=== PATIENT | male | born 1950 | race African-American/Black ===

== ENCOUNTER → 2017-01-19 | Outpatient (CLI) | payer MEDICARE, BC ==
[~2017-01-19] MED LIST: AMIO200T2 PO; HYDR-762 PO; HYDR200T39 PO; LEVO25TA53 PO; TAMS0.4C2 PO; WARF5TAB72 PO
--- NOTE | 2017-01-20 08:56 | RADRPT ---
PROCEDURE: LEFT KNEE X-RAY CLINICAL INDICATION: PAIN TECHNIQUE: AP, lateral, and oblique views of the knee were obtained. COMPARISON: Plain radiographs of the knees from 08/21/2014 FINDINGS: No acute fracture or dislocation is seen. There is normal mineralization. An osteochondral defect involving the lateral compartment is again noted measuring up to 15 mm in wi dth and 7 mm in height. It appears that increased in size since the prior radiographs from 2014. S ubchondral sclerosis and joint space narrowing involving the lateral compartment are again noted. There is no joint effusion. There is no significant soft tissue swelling. IMPRESSION: Osteochondral defect and degenerative changes involving primarily the lateral compartment are again noted which have increased since the prior radiographs from 2014. RPTAT: EE Physician Abiel Date Time Electronically viewed and signed by Physician Abiel on 01/20/2017 08:55 RA/
== END | disposition home or self-care (01) ==
LOC: HKI 13:53
DX: M25.562 Pain in left knee (principal); M17.12 Unilateral primary osteoarthritis, left knee; Z96.651 Presence of right artificial knee joint
CPT/HCPCS: 20610; 73562; G0463

== ENCOUNTER 2017-01-22 22:32 | Inpatient (IN) | payer MEDICARE, BC ==
[~2017-01-22] VITALS: Ht 172.7 cm; Wt 66.2 kg
[2017-01-23 00:50] VITALS: TEMP 97.4
[2017-01-23] MEDS ORDERED: HYDROmorphONE 1 MG/ML SYG IV STA ×4 (02:28→09:58)
[2017-01-23] MEDS ORDERED: SOD CHLORIDE 0.9% 1,000 ML IV ONE ×2 (02:30→04:30)
--- NOTE | 2017-01-23 02:32 | ERD ---
ER Documentation Chief Complaint Date/Time DATE: 01/23/17 TIME: 02:30 Chief Complaint low back pain today, limping gait, hx of sickle cell HPI Patient is a 66-year-old male with sickle cell disease who presents with gradual onset, constant, moderate bilateral lumbar back pain since 7 PM. He denies dysuria, hematuria, abdominal pain, fever, vomiting. He states that he has had one prior episode of similar pain in the setting of sickle crisis 3 years ago. He denies leg weakness or numbness. He denies incontinence. He denies trauma or heavy lifting. He denies dark stools. ROS All systems reviewed and are negative except as per history of present illness. Medications Home Meds Reported Medications Tamsulosin Hcl* (Tamsulosin Hcl*) 0.4 Mg Cap.er.24h, 0.4 MG PO DAILY, CAP 10/10/14 Warfarin Sodium* (Coumadin*) 5 Mg Tablet, 5 MG PO DAILY, TAB 10/10/14 Amiodarone Hcl* (Amiodarone Hcl*) 200 Mg Tablet, 200 MG PO DAILY 12/01/12 Discontinued Reported Medications Levothyroxine Sodium* (Levothyroxine Sodium*) 25 Mcg Tablet, PO AC BREAKFAST, TAB 10/10/14 Hydroxychloroquine Sulfate* (Hydroxychloroquine Sulfate*) 200 Mg Tablet, 200 MG PO BID, TAB 10/10/14 Discontinued Scripts Hydrocodone Bit-Acetaminophen* ([place]*) 10-325 Mg Tablet, 1 TAB PO Q6 Y for PAIN , #5 TAB Prov:JONAS GALLAGHER MD 02/10/15 Allergies Allergies: Coded Allergies: morphine (Unverified Allergy, Unknown, "SLOWS DOWN MY BREATHING", 01/23/17) PMhx/Soc Past medical history: Sickle cell disease, pulmonary embolism, cardiac arrhythmia Past surgical history: Right knee replacement Social history: Denies tobacco, alcohol or illicit drugs History of Surgery: Yes (right knee replacement) Anesthesia Reaction: No Hx Neurological Disorder: No Hx Respiratory Disorders: No Hx Cardiac Disorders: No Hx Psychiatric Problems: No Hx Miscellaneous Medical Probl: Yes (sickel cell) Hx Alcohol Use: No Hx Substance Use: No Hx Tobacco Use: No Smoking Status: Never smoker FmHx Family History: No coronary disease, No diabetes Physical Exam Vitals Vital Signs Date Time Temp Pulse Resp B/P Pulse Ox O2 Delivery O2 Flow Rate FiO2 01/23/17 06:32 73 20 175/74 100 Room Air 01/23/17 05:29 80 22 184/78 100 Nasal Cannula 2.0 01/23/17 03:43 68 20 168/87 98 Room Air 01/23/17 00:50 97.4 58 17 151/67 97 Room Air 01/22/17 23:07 97.1 71 17 192/75 97 Physical Exam Const: Alert, no acute distress Head: Atraumatic Eyes: Normal Conjunctiva, mild pallor, mild icterus ENT: Normal External Ears, Nose and Mouth. Mucous membranes moist Neck: Full range of motion..~ No meningismus. Resp: Clear to auscultation bilaterally, no wheezes, no rales Cardio: Regular rate and rhythm, no murmurs Abd: Soft, non tender, non distended. Normal bowel sounds Skin: No petechiae or rashes Back: No midline or CVA tenderness. Bilateral lumbar paraspinal tenderness with muscle spasm Ext: No cyanosis, or edema Neur: Awake and alert, cranial nerves II through XII intact bilaterally, strength and sensation full in 4 extremities. Psych: Normal Mood and Affect Result Diagram: 01/23/17 0230 01/23/17 0230 Results 24 hrs Laboratory Tests Test 01/23/17 02:30 01/23/17 03:10 White Blood Count 15.310^3/ul Red Blood Count 2.4310^6/ul Hemoglobin 6.7g/dl Hematocrit 20.0% Mean Corpuscular Volume 82.3fl Mean Corpuscular Hemoglobin 27.6pg Mean Corpuscular Hemoglobin Concent 33.5g/dl Red Cell Distribution Width 24.1% Platelet Count 23104^3/UL Mean Platelet Volume 11.2fl Neutrophils % 68.2% Lymphocytes % 10.2% Monocytes % 16.6% Eosinophils % 0.0% Basophils % 0.1% Nucleated Red Blood Cells % 1.8/100WBC Neutrophils # (Manual) 1010^3/ul Lymphocytes # 1.610^3/ul Monocytes # 2.510^3/ul Eosinophils # 0.010^3/ul Basophils # 0.010^3/ul Nucleated Red Blood Cells # 0.310^3/ul Prothrombin Time 27.1Sec Prothrombin Time Ratio 2.1 INR International Normalized Ratio 2.48 Sodium Level 136mmol/L Potassium Level 5.3mmol/L Chloride Level 104mmol/L Carbon Dioxide Level 22mmol/L Anion Gap 15 Blood Urea Nitrogen 24mg/dl Creatinine 0.97mg/dl Glucose Level 104mg/dl Calcium Level 8.3mg/dl Total Bilirubin 3.5mg/dl Direct Bilirubin 0.10mg/dl Indirect Bilirubin 3.4mg/dl Aspartate Amino Transf (AST/SGOT) 47IU/L Alanine Aminotransferase (ALT/SGPT) 45IU/L Alkaline Phosphatase 136IU/L Total Protein 8.2g/dl Albumin 4.2g/dl Globulin 4.00g/dl Albumin/Globulin Ratio 1.05 Urine Color YELLOW Urine Clarity CLOUDY Urine pH 5.0 Urine Specific [place] 1.011 Urine Ketones NEGATIVEmg/dL Urine Nitrite NEGATIVEmg/dL Urine Bilirubin NEGATIVEmg/dL Urine Urobilinogen 2+mg/dL Urine Leukocyte Esterase NEGATIVELeu/ul Urine Microscopic RBC 2/HPF Urine Microscopic WBC 1/HPF Urine Hemoglobin NEGATIVEmg/dL Urine Glucose NEGATIVEmg/dL Urine Total Protein NEGATIVEmg/dl Current Medications Medications (Trade) Dose Ordered Sig/Brett Route PRN Reason Start Time Stop Time Status Last Admin Dose Admin Hydromorphone HCl 1 mg 1 mg ONCE STAT IV 01/23/17 02:28 01/23/17 02:31 DC 01/23/17 02:41 Sodium Chloride (NS) 1,000 ml @ 1,000 mls/hr Q1H ONCE IV 01/23/17 02:30 01/23/17 03:29 DC 01/23/17 02:36 Hydromorphone HCl (Dilaudid) 1 mg ONCE STAT IV 01/23/17 03:03 01/23/17 03:04 DC 01/23/17 03:07 Hydromorphone HCl 1 mg 1 mg ONCE STAT IV 01/23/17 04:05 01/23/17 04:06 DC 01/23/17 04:10 Sodium Chloride (NS) 1,000 ml @ 1,000 mls/hr Q1H ONCE IV 01/23/17 04:30 01/23/17 05:29 DC 01/23/17 04:21 Ketorolac Tromethamine (Toradol) 15 mg ONCE STAT IV 01/23/17 04:25 01/23/17 04:27 DC 01/23/17 04:34 Cyclobenzaprine HCl 10 mg 10 mg ONCE ONCE PO 01/23/17 04:30 01/23/17 04:31 DC 01/23/17 04:35 Sodium Chloride (NS) 250 ml @ 0 mls/hr Q0M ONCE IV 01/23/17 04:25 01/23/17 04:27 DC Procedures/MDM MDM: Patient is a 66-year-old male who presents with bilateral paraspinal lumbar pain for 2 days. He has muscle tenderness on exam. He has no fever or neurologic symptoms. She reports a history of similar pain during a sickle pain crisis several years ago. He was given IV narcotics, muscle relaxants and Toradol, as well as IV fluids and oxygen, and had mild improvement. He was found to have anemia with hemoglobin less than 7. I offered him transfusion, which I believe may help his symptoms as well as prevent him from developing symptomatic anemia, and the patient agreed to transfusion. He will be given 1 unit of packed red blood cells and discharged home with a prescription for analgesics. There is no evidence of UTI. He was advised on return precautions. He was well-appearing. I consulted [facility] and could not find any entries for him. 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
[2017-01-23 03:39] LABS: ABNORMAL IP MESSAGE 1; BASOPHILS % 0.1 % (0.0-2.0); LYMPHOCYTES # 1.6 10^3/ul (0.8-2.9); LYMPHOCYTES % 10.2 % (15.0-51.0); MEAN CORPUSCULAR HEMOGLOBIN 27.6 pg (29.0-33.0); MEAN CORPUSCULAR HGB CONC 33.5 g/dl (32.0-37.0); MEAN CORPUSCULAR VOLUME 82.3 fl (82.0-101.0); MEAN PLATELET VOLUME 11.2 fl (7.4-10.4); MONOCYTE # 2.5 10^3/ul (0.3-0.9); MONOCYTES % 16.6 % (0.0-11.0); NEUTROPHILS % 68.2 % (39.0-77.0); NUCLEATED RED BLOOD CELLS # 0.3 10^3/ul (0.0-0.0); NUCLEATED RED BLOOD CELLS% 1.8 /100WBC (0.0-0.0); PLATELET COUNT 222 10^3/UL (140-415); POSITIVE DIFF @See below; RED BLOOD COUNT 2.43 10^6/ul (4.70-6.10); RED CELL DISTRIBUTION WIDTH 24.1 % (11.5-14.5); WHITE BLOOD COUNT 15.3 10^3/ul (4.8-10.8)
[2017-01-23 03:56] LABS: INR 2.48; PROTIME 27.1 Sec (12.2-14.2); PT RATIO 2.1
[2017-01-23 03:59] LABS: ALBUMIN 4.2 g/dl (3.3-4.9); ALBUMIN/GLOBULIN RATIO 1.05; BILIRUBIN,DIRECT 0.1 mg/dl (0.00-0.20); BILIRUBIN,INDIRECT 3.4 mg/dl (0-1.1); BILIRUBIN,TOTAL 3.5 mg/dl (0.2-1.3); CALCIUM 8.3 mg/dl (8.4-10.2); CREATININE 0.97 mg/dl (0.61-1.24); POTASSIUM 5.3 mmol/L (3.5-5.1); TOTAL PROTEIN 8.2 g/dl (6.1-8.1)
[2017-01-23 04:12] LABS: HEMOGLOBIN 6.7 g/dl (14.0-18.0)
[2017-01-23 04:25] LABS: ADD UMIC YES; UR ASCORBIC ACID 40 mg/dL (NEGATIVE); UR BILIRUBIN (Dip) NEGATIVE (NEGATIVE); UR BLOOD (Dip) NEGATIVE (NEGATIVE); UR CLARITY CLOUDY (CLEAR); UR COLOR YELLOW (YELLOW); UR GLUCOSE (Dip) NEGATIVE (NEGATIVE); UR KETONES (Dip) NEGATIVE (NEGATIVE); UR LEUKOCYTE ESTERASE (Dip) NEGATIVE Leu/ul (NEGATIVE); UR NITRITE (Dip) NEGATIVE (NEGATIVE); UR RBC 2 /HPF (0-5); UR SPECIFIC GRAVITY (Dip) 1.011 (1.003-1.030); UR TOTAL PROTEIN (Dip) NEGATIVE (NEGATIVE); UR UROBILINOGEN (Dip) 2+ mg/dL (NEGATIVE)
[2017-01-23] MEDS ORDERED: KETOROLAC 15 MG INJ IV STA (04:25)
[2017-01-23] MEDS ORDERED: SOD CHLORIDE 0.9% 250 ML IV ONE (04:25)
[2017-01-23] MEDS ORDERED: CYCLOBENZAPRINE 10 MG TAB PO ONE (04:30)
[2017-01-23] MEDS ORDERED: CYCL-319 PO (06:59)
[2017-01-23] MEDS ORDERED: OXYC-279 PO (06:59)
[2017-01-23] MEDS ORDERED: OXYCODONE/ACETAMINOPHEN (10/325) TAB PO ONE (08:00)
[2017-01-23 08:09] LABS: ANISOCYTOSIS 2+ (0-0); ERYTHROBLAST% (NRBC) (M) 4 % (0-0); GIANT THROMBO% (M) 14 % (0-0); HYPOCHROMASIA 2+ (0-0); MICROCYTOSIS 1+ (0-0); MONOCYTES % (M) 17 % (0-11); PLATELET ESTIMATE NORMAL; POIKILOCYTOSIS 2+ (0-0); POLYCHROMASIA 3+ (0-0); SICKLE CELL 1+ (0-0); STOMATOCYTES 1+ (0-0); TARGET CELLS 1+ (0-0)
[2017-01-23 08:15] LABS: RETICULOCYTE COUNT % 6.5 % (0.5-1.5)
[2017-01-23] MEDS ORDERED: CEFTRIAXONE 1 GM/50 ML (PMX) 50 ML IVPB ONE (10:30)
[2017-01-23] MEDS ORDERED: ACETAMINOPHEN 325 MG TAB PO PRN (11:00)
[2017-01-23] MEDS ORDERED: ONDANSETRON 4 MG INJ IV PRN (11:00)
[2017-01-23] MEDS ORDERED: NACL 0.9% 3 ML SYG IV SCH (12:30)
[2017-01-23] MEDS ORDERED: DOCUSATE SODIUM 100 MG CAP PO PRN (12:30)
[2017-01-23] MEDS ORDERED: ONDANSETRON 4 MG TAB PO PRN (12:30)
[2017-01-23] MEDS ORDERED: OXYCODONE/ACETAMINOPHEN (5/325) TAB PO PRN (12:30)
[2017-01-23] MEDS ORDERED: CYCLOBENZAPRINE 10 MG TAB PO PRN (12:30)
--- NOTE | 2017-01-23 12:47 | HP ---
Date/Time of Note Date/Time of Note DATE: 01/23/17 TIME: 12:38 Assessment/Plan VTE Prophylaxis VTE Prophylaxis Intervention: heparin Assessment/Plan Problems: (1) Sickle cell anemia with pain Status: Acute Comment: This gentleman generally does quite well but has gone into a pain crisis with severe anemia high reticulocyte count. To be thorough I will check a stool for occult blood and follow him along. He will be transfused to help bring him up and will be on oxygen. Actually as of now his pain control is getting better but again we need to bring his counts up. (2) Rheumatoid arthritis Status: Chronic Comment: Noted. He had previously been treated with Plaquenil but is off of treatment. His regular ground operations supervisor is Dr. Sai Joe Qualifiers: Rheumatoid arthritis location: hand Rheumatoid factor presence: with rheumatoid factor Laterality: bilateral Qualified Code: M05.741 - Rheumatoid arthritis involving both hands with positive rheumatoid factor (3) BPH (benign prostatic hypertrophy) with urinary retention Status: Chronic Comment: Continue tamsulosin therapeutic (4) Osteoarthritis Status: Chronic Comment: As per the management from Dr. Bardales Qualifiers: Osteoarthritis location: knee Osteoarthritis type: primary Laterality: left Qualified Code: M17.12 - Primary osteoarthritis of left knee (5) Paroxysmal atrial fibrillation Status: Chronic Comment: He is presently in sinus rhythm while on anticoagulation and amiodarone. His medications will be continued HPI/ROS Admit Date/Time Admit Date/Time January 23, 2017 Hx of Present Illness Generally healthy 66-year-old single -[place] gentleman. 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 His last was roughly 3 years ago which was treated in the emergency room and then treated as an outpatient without admission. He has recently generally been healthy without any known fevers chills sweats has a negative urologic GI and respiratory review of systems. On 22 January he developed low back pain which then progressed to bilateral shoulder pain typical of his prior pain episodes. He presented to the emergency room with the hope of being treated as an outpatient. He was treated with analgesia but unfortunately his pain did not remit as much as at prior episodes. He denies any melena or bright red blood per rectum. ROS Constitutional: no complaints (Denies fevers chills or sweats) Eyes: no complaints (Denies ophthalmic complaints) ENT: no complaints (No sinus symptoms) Respiratory: no complaints (Fully negative) Cardiovascular: no complaints Gastrointestinal: no complaints (Denies nausea vomiting diarrhea constipation) Genitourinary: no complaints (Please note he does have some BPH symptoms but this improved with usage of tamsulosin) Musculoskeletal: back pain (And shoulder pain) Skin: no complaints Neurologic: no complaints Endocrine: no complaints Lymphatic: no complaints Psychological: no complaints PMH/Family/Social Past Medical History 1) BPH, 2) sickle cell disease 3) rheumatoid arthritis (off treatment), 4) paroxysmal atrial fibrillation, 5) osteoarthrosis/DJD, 6) hypothyroidism Past Surgical History A) status post bilateral total hip replacement, B) status post right total knee replacement, C) status post left knee arthroscopy Family History Significant Family History: diabetes, hypertension, other (Positive sickle cell disease) Social History . 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; divorce but good can terms with his family Alcohol Use: none Smoking Status: Never smoker Drug Use: none Exam/Review of Systems Vital Signs Vitals Vital Signs Date Time Temp Pulse Resp B/P Pulse Ox O2 Delivery O2 Flow Rate FiO2 01/23/17 08:55 84 22 158/69 100 Nasal Cannula 2.0 01/23/17 00:50 97.4 Exam Constitutional: alert, oriented Psych: nl mood/affect, no complaints Head: atraumatic, normocephalic Eyes: EOMI, nl conjunctiva, nl lids, nl sclera (Scant icterus) ENMT: mucosa pink and moist, nl external ears & nose, nl lips & teeth, nl nasal mucosa & septum Neck: non-tender, supple Respiratory: clear to auscultation, normal air movement Cardiovascular: nl pulses, regular rate and rhythm Gastrointestinal: nl liver, spleen, non-tender, soft Extremities: normal pulses Neurological: NEURORADIOLOGIST II-XII intact, nl mental status, nl speech, nl strength Skin: nl turgor Labs Result Diagram: 01/23/17 02301/23/17 023 Medications Medications Current Medications Potassium Chloride/Sodium Chloride (NS-KCl 20 Meq) 1,000 ml @ 125 mls/hr Q8H IV ; Start 01/23/17 at 12:27; Status UNV Ondansetron HCl (Zofran Tab) 4 mg Q6H PRN PO NAUSEA AND/OR VOMITING; Start at 12:30; Status UNV Oxycodone/ Acetaminophen (Percocet (5/ 325)) 1 tab Q6H PRN PO MODERATE PAIN LEVEL 4-6; Start 01/23/17 at 12:30; Status UNV Oxycodone/ Acetaminophen (Percocet (5/ 325)) 2 tab Q6H PRN PO SEVERE PAIN LEVEL 7-10; Start 01/23/17 at 12:30; Status UNV Hydromorphone HCl (Dilaudid) 0.5 mg Q4H PRN IV SEVERE PAIN LEVEL 7-10; Start at 12:30; Status UNV Docusate Sodium (Colace) 100 mg Q12H PRN PO CONSTIPATION; Start 01/23/17 at 12: 30; Status UNV Magnesium Hydroxide (Milk Of Mag) 30 ml DAILY PRN PO CONSTIPATION; Start at 12:30; Status UNV Famotidine (Pepcid) 20 mg Q12 PO ; Start 01/23/17 at 21:00; Status UNV Heparin Sodium (Porcine) (Heparin (5000 Units/0.5 ml)) 5,000 unit Q12 SC ; Start 01/23/17 at 21:00; Status UNV Amiodarone HCl (Cordarone) 200 mg DAILY PO ; Start 01/24/17 at 09:00; Status UNV Cyclobenzaprine HCl (Flexeril) 10 mg Q8 PRN PO PAIN; Start 01/23/17 at 12:30; Status UNV Oxycodone/ Acetaminophen (Percocet (5/ 325)) 5 tab Q4 PRN PO PAIN; Start at 12:30; Status UNV Tamsulosin HCl (Flomax) 0.4 mg DAILY PO ; Start 01/24/17 at 09:00; Status UNV Warfarin Sodium (Coumadin) 5 mg DAILY PO ; Start 01/24/17 at 09:00; Status VENUV SAI ADAMS MD Jan 23, 2017 12:46
[2017-01-23 15:00] VITALS: BP 175/74; PULSE 93; RESP 18
[2017-01-23] MEDS: HYDROmorphONE 1 MG/ML SYG IV PRN ×2 (15:04→22:18)
[2017-01-23 15:36] VITALS: Ht 172.7 cm; Wt 66.2 kg
[2017-01-23] MEDS: NS + KCL 20 MEQ 1,000 ML IV SCH ×2 (16:06→22:30)
[2017-01-23] MEDS: WARFARIN 5 MG TAB PO SCH (17:37)
[2017-01-23] MEDS ORDERED: VANCOMYCIN IV PER PHARMACY XX SCH (18:30)
[2017-01-23] MEDS ORDERED: DIPHENHYDRAMINE 50 MG INJ IV ONE (18:30)
[2017-01-23] MEDS ORDERED: ACETAMINOPHEN 325 MG TAB PO ONE (18:30)
[2017-01-23] MEDS ORDERED: VANCOMYCIN 1.25 GM in SOD CHLORIDE 0.9% 250 ML IVPB ONE (20:00)
[2017-01-23 20:25] VITALS: BP 169/81; RESP 20
[2017-01-23] MEDS: FAMOTIDINE 20 MG TAB PO SCH (22:23)
[2017-01-23] MEDS: HEPARIN 5,000 UNIT/0.5 ML VIAL SC SCH (22:29)
[2017-01-24 02:32] VITALS: BP 172/82; RESP 18
[2017-01-24] MEDS: HYDROmorphONE 1 MG/ML SYG IV PRN ×4 (03:58→20:51)
[2017-01-24] MEDS: LEVOTHYROXINE 50 MCG TAB PO SCH (06:06)
[2017-01-24] MEDS: OXYCODONE/ACETAMINOPHEN (5/325) TAB PO PRN ×3 (06:12→21:22)
[2017-01-24 07:06] LABS: ABNORMAL IP MESSAGE 1; HEMOGLOBIN 8.6 g/dl (14.0-18.0); MEAN CORPUSCULAR HEMOGLOBIN 28.1 pg (29.0-33.0); MEAN CORPUSCULAR HGB CONC 34.4 g/dl (32.0-37.0); MEAN CORPUSCULAR VOLUME 81.7 fl (82.0-101.0); NUCLEATED RED BLOOD CELLS% 12.3 /100WBC (0.0-0.0); POSITIVE DIFF @See below; RED BLOOD COUNT 3.06 10^6/ul (4.70-6.10); RED CELL DISTRIBUTION WIDTH 22.9 % (11.5-14.5); WHITE BLOOD COUNT 20.8 10^3/ul (4.8-10.8)
[2017-01-24 07:12] LABS: PLATELET COUNT 140 10^3/UL (140-415)
[2017-01-24 07:15] LABS: INR 2.97; PROTIME 31.3 Sec (12.2-14.2); PT RATIO 2.4
[2017-01-24 07:27] LABS: ALBUMIN 3.4 g/dl (3.3-4.9); ALBUMIN/GLOBULIN RATIO 0.94; BILIRUBIN,DIRECT 0.6 mg/dl (0.00-0.20); BILIRUBIN,INDIRECT 4.2 mg/dl (0-1.1); BILIRUBIN,TOTAL 4.8 mg/dl (0.2-1.3); CALCIUM 7.9 mg/dl (8.4-10.2); CREATININE 0.81 mg/dl (0.61-1.24); PHOSPHORUS 4.2 mg/dl (2.5-4.9); POTASSIUM 5.5 mmol/L (3.5-5.1)
[2017-01-24 07:55] LABS: THYROID STIMULATING HORMONE 1.53 MIU/L (0.465-4.680)
[2017-01-24 08:00] VITALS: BP 184/90; PULSE 90; RESP 18
[2017-01-24] MEDS: TAMSULOSIN (SR) 0.4 MG CAP PO SCH (08:32)
[2017-01-24] MEDS: FAMOTIDINE 20 MG TAB PO SCH ×2 (08:32→20:43)
[2017-01-24] MEDS: AMIODARONE 200 MG TAB PO SCH (08:33)
[2017-01-24] MEDS: HEPARIN 5,000 UNIT/0.5 ML VIAL SC SCH (08:40)
[2017-01-24 09:43] LABS: ANISOCYTOSIS 2+ (0-0); EOSINOPHILS % (M) 3 % (0-7); ERYTHROBLAST% (NRBC) (M) 17 % (0-0); GIANT THROMBO% (M) 6 % (0-0); HYPOCHROMASIA 1+ (0-0); MICROCYTOSIS 1+ (0-0); MONOCYTES % (M) 9 % (0-11); PLATELET ESTIMATE DECREASED; POIKILOCYTOSIS 2+ (0-0); POLYCHROMASIA 3+ (0-0); REACTIVE LYMPHOCYTES% (M) 1 % (0-0); SICKLE CELL 2+ (0-0)
--- NOTE | 2017-01-24 09:54 | PN ---
Date/Time of Note Date/Time of Note DATE: 01/24/17 TIME: 09:52 Assessment/Plan VTE Prophylaxis VTE Prophylaxis Intervention: other (Warfarin) Lines/Catheters IV [facility] Type [facility] Peripheral IV Urinary Cath still in place: No Assessment/Plan Problems: (1) Sickle cell anemia with pain Status: Acute Comment: No clear-cut cause to set off the pain crisis. I have him on antibiotics as I am concerned there might be an occult infection accounting for this. The meantime however he is steadily improving. Assuming the cultures are negative (they are all pending at this time) then he should be able to be discharged in the morning (2) Rheumatoid arthritis Status: Chronic Comment: Noted and stable off treatment Qualifiers: Rheumatoid arthritis location: hand Rheumatoid factor presence: with rheumatoid factor Laterality: bilateral Qualified Code: M05.741 - Rheumatoid arthritis involving both hands with positive rheumatoid factor (3) BPH (benign prostatic hypertrophy) with urinary retention Status: Chronic Comment: Stable on medication (4) Osteoarthritis Status: Chronic Comment: Noted and stable Qualifiers: Osteoarthritis location: knee Osteoarthritis type: primary Laterality: left Qualified Code: M17.12 - Primary osteoarthritis of left knee (5) Paroxysmal atrial fibrillation Status: Chronic Comment: Adequate control with amiodarone and anticoagulated with warfarin for protection Subjective 24 Hr Interval Summary Free Text/Dictation Patient reports his pain is modestly improved but now he has new sites of pain including the medial left knee lateral right hip area. Constitutional: no complaints (No fevers chills or sweats) ENT: no complaints (No dental complaint) Respiratory: no complaints Cardiovascular: no complaints Gastrointestinal: no complaints Genitourinary: no complaints Exam/Review of Systems Vital Signs Vitals Vital Signs Date Time Temp Pulse Resp B/P Pulse Ox O2 Delivery O2 Flow Rate FiO2 01/24/17 08:00 99.3 90 18 184/90 96 Nasal Cannula 01/23/17 15:00 2.0 Intake and Output 01/23/17 01/23/17 01/24/17 15:00 23:00 07:00 Intake Total 350 ml 1880 ml Output Total 2210 ml Balance 350 ml -330 ml Exam Constitutional: alert, oriented Respiratory: clear to auscultation, normal air movement Cardiovascular: nl pulses, regular rate and rhythm Gastrointestinal: nl liver, spleen, non-tender, soft Results Result Diagram: 01/24/17 0511 01/24/17 0511 Results 24 hrs Laboratory Tests Test 01/23/17 11:51 01/24/17 05:11 Lactic Acid Level 2.0 White Blood Count 20.8 #H Red Blood Count 3.06 #L Hemoglobin 8.6 #L Hematocrit 25.0 #L Mean Corpuscular Volume 81.7 L Mean Corpuscular Hemoglobin 28.1 L Mean Corpuscular Hemoglobin Concent 34.4 Red Cell Distribution Width 22.9 H Platelet Count 140 # Mean Platelet Volume Neutrophils % Segmented Neutrophils % (Manual) 79 H Lymphocytes % Lymphocytes % (Manual) 8 L Reactive Lymphocytes % (Manual) 1 H Monocytes % Monocytes % (Manual) 9 Eosinophils % Eosinophils % (Manual) 3 Basophils % Nucleated Red Blood Cells % 17 H Neutrophils # (Manual) Absolute Lymphocytes (Manual) 1.6 Lymphocytes # Reactive Lymphocytes # 0.2 H Monocytes # Absolute Monocytes (Manual) 1.8 H Eosinophils # Basophils # Nucleated Red Blood Cells # Thrombocytosis 6 H Platelet Estimate DECREASED Platelet Morphology Comment @See below Polychromasia 3+ Hypochromasia 1+ Poikilocytosis 2+ Anisocytosis 2+ Microcytosis 1+ Macrocytosis 1+ Sickle Cells 2+ Prothrombin Time 31.3 H Prothrombin Time Ratio 2.4 INR International Normalized Ratio 2.97 Sodium Level 136 Potassium Level 5.5 H Chloride Level 101 Carbon Dioxide Level 21 Anion Gap 20 H Blood Urea Nitrogen 19 Creatinine 0.81 Glucose Level 105 Calcium Level 7.9 L Phosphorus Level 4.2 Total Bilirubin 4.8 H Direct Bilirubin 0.60 #H Indirect Bilirubin 4.2 H Aspartate Amino Transf (AST/SGOT) 110 #H Alanine Aminotransferase (ALT/SGPT) 55 Alkaline Phosphatase 205 #H Total Protein 7.0 # Albumin 3.4 Globulin 3.60 H Albumin/Globulin Ratio 0.94 Thyroid Stimulating Hormone (TSH) 1.530 Medications Medications Current Medications Ondansetron HCl (Zofran Tab) 4 mg Q6H PRN PO NAUSEA AND/OR VOMITING; Start at 12:30 Oxycodone/ Acetaminophen (Percocet (5/ 325)) 1 tab Q6H PRN PO MODERATE PAIN LEVEL 4-6; Start 01/23/17 at 12:30 Oxycodone/ Acetaminophen (Percocet (5/ 325)) 2 tab Q6H PRN PO SEVERE PAIN LEVEL 7-10 Last administered on 01/24/17 06:12; Admin Dose 2 TAB; Start at 12:30 Hydromorphone HCl (Dilaudid) 0.5 mg Q4H PRN IV SEVERE PAIN LEVEL 7-10 Last administered on 01/24/17 09:23; Admin Dose 0.5 MG; Start 01/23/17 at 12:30 Docusate Sodium (Colace) 100 mg Q12H PRN PO CONSTIPATION; Start 01/23/17 at 12: 30 Magnesium Hydroxide (Milk Of Mag) 30 ml DAILY PRN PO CONSTIPATION; Start at 12:30 Famotidine (Pepcid) 20 mg Q12 PO Last administered on 01/24/17 08:32; Admin Dose 20 MG; Start 01/23/17 at 21:00 Heparin Sodium (Porcine) (Heparin (5000 Units/0.5 ml)) 5,000 unit Q12 SC Last administered on 01/24/17 08:40; Admin Dose 5,000 UNIT; Start 01/23/17 at 21:00 Amiodarone HCl (Cordarone) 200 mg DAILY PO Last administered on 01/24/17 08:33 ; Admin Dose 200 MG; Start 01/24/17 at 09:00 Cyclobenzaprine HCl (Flexeril) 10 mg Q8 PRN PO PAIN; Start 01/23/17 at 12:30 Tamsulosin HCl (Flomax) 0.4 mg DAILY PO Last administered on 01/24/17 08:32; Admin Dose 0.4 MG; Start 01/24/17 at 09:00 Warfarin Sodium (Coumadin) 5 mg DAILY@17 PO Last administered on 01/23/17 17: 37; Admin Dose 5 MG; Start 01/23/17 at 17:00 Levothyroxine Sodium 50 mcg 50 mcg QAM@0630 PO Last administered on 01/24/17 06:06; Admin Dose 50 MCG; Start 01/24/17 at 06:30 Vancomycin HCl (Vancocin) 250 ml @ 125 mls/hr Q12H IVPB ; Start 01/24/17 at 11: 00 Miscellaneous Information (*Rx Drug Level Order Reminder*) VANCOMYCIN TROUGH AT 1000 ONCE ONCE XX ; Start 01/25/17 at 10:00; Stop 01/25/17 at 10:01 SAI ADAMS MD Jan 24, 2017 09:54
[2017-01-24] MEDS ORDERED: VANCOMYCIN 500MG/NS (PMX) 100 ML IVPB SCH (10:00)
[2017-01-24] MEDS: VANCOMYCIN 1 GM in NS 250 ML IVPB SCH ×2 (11:36→23:36)
[2017-01-24 14:29] VITALS: BP 182/84; PULSE 97; RESP 18
[2017-01-24] MEDS: CEFOTAXIME 1 GM/50 ML (PMX) 50 ML IVPB SCH ×2 (14:36→20:43)
[2017-01-24] MEDS: WARFARIN 5 MG TAB PO SCH (17:08)
[2017-01-24 19:21] VITALS: BP 185/82; RESP 20
[2017-01-25 01:26] VITALS: BP 192/92; RESP 20
[2017-01-25] MEDS: HYDROmorphONE 1 MG/ML SYG IV PRN ×2 (01:37→08:02)
[2017-01-25] MEDS: OXYCODONE/ACETAMINOPHEN (5/325) TAB PO PRN ×2 (03:23→19:47)
[2017-01-25] MEDS: CEFOTAXIME 1 GM/50 ML (PMX) 50 ML IVPB SCH ×3 (05:59→20:36)
[2017-01-25] MEDS: LEVOTHYROXINE 50 MCG TAB PO SCH (05:59)
[2017-01-25 06:47] LABS: ABNORMAL IP MESSAGE 1; HEMATOCRIT 25.9 % (42.0-52.0); HEMOGLOBIN 9.1 g/dl (14.0-18.0); MEAN CORPUSCULAR HEMOGLOBIN 28.9 pg (29.0-33.0); MEAN CORPUSCULAR HGB CONC 35.1 g/dl (32.0-37.0); MEAN CORPUSCULAR VOLUME 82.2 fl (82.0-101.0); NUCLEATED RED BLOOD CELLS% 13.1 /100WBC (0.0-0.0); POSITIVE DIFF @See below; RED BLOOD COUNT 3.15 10^6/ul (4.70-6.10); RED CELL DISTRIBUTION WIDTH 23.8 % (11.5-14.5); WHITE BLOOD COUNT 19.2 10^3/ul (4.8-10.8)
[2017-01-25 06:56] LABS: PLATELET COUNT 77 10^3/UL (140-415)
[2017-01-25 06:57] LABS: INR 2.83; PROTIME 30.1 Sec (12.2-14.2); PT RATIO 2.4
[2017-01-25 07:06] LABS: CALCIUM 8.1 mg/dl (8.4-10.2); CREATININE 0.88 mg/dl (0.61-1.24); POTASSIUM 4.5 mmol/L (3.5-5.1)
[2017-01-25 07:28] VITALS: BP 186/95; RESP 18
[2017-01-25] MEDS: TAMSULOSIN (SR) 0.4 MG CAP PO SCH (08:01)
[2017-01-25] MEDS: FAMOTIDINE 20 MG TAB PO SCH ×2 (08:02→20:35)
[2017-01-25] MEDS: AMIODARONE 200 MG TAB PO SCH (08:02)
[2017-01-25 10:43] LABS: ANISOCYTOSIS 2+ (0-0); ERYTHROBLAST% (NRBC) (M) 15 % (0-0); GIANT THROMBO% (M) 3 % (0-0); HYPOCHROMASIA 2+ (0-0); METAMYELOCYTES %M 1 % (0-0); MICROCYTOSIS 1+ (0-0); MONOCYTES % (M) 7 % (0-11); MYELOCYTES % (M) 1 % (0.0-0.0); PLATELET ESTIMATE DECREASED; POIKILOCYTOSIS 2+ (0-0); POLYCHROMASIA 3+ (0-0); PROMYELOCYTES #M 0 # (0-0); PROMYELOCYTES % (M) 1 % (0-0); REACTIVE LYMPHOCYTES% (M) 1 % (0-0)
[2017-01-25] MEDS: VANCOMYCIN 1 GM in NS 250 ML IVPB SCH ×2 (12:25→22:50)
--- NOTE | 2017-01-25 13:33 | PN ---
Date/Time of Note Date/Time of Note DATE: 01/25/17 TIME: 13:23 Assessment/Plan VTE Prophylaxis VTE Prophylaxis Intervention: other (coumadin) Lines/Catheters IV Catheter Type (from Nrsg): Peripheral IV Urinary Cath still in place: No Assessment/Plan Chief Complaint/Hosp Course worse of sickle crisis seems over however still not back to baseline Problems: (1) Sickle cell anemia with pain Status: Acute (2) Pain Status: Acute (3) Osteoarthritis Status: Chronic Qualifiers: Osteoarthritis location: knee Osteoarthritis type: primary Laterality: left Qualified Code: M17.12 - Primary osteoarthritis of left knee (4) Paroxysmal atrial fibrillation Status: Chronic Assessment/Plan plan continue current rx culture of urine positive for 2 organisms.will have pt or nursing get out of bed Subjective 24 Hr Interval Summary Free Text/Dictation patient improving less pain feels somewhat better complaining of knee pain which has been getting worse for which nhe sees Exam/Review of Systems Vital Signs Vitals Vital Signs Date Time Temp Pulse Resp B/P Pulse Ox O2 Delivery O2 Flow Rate FiO2 01/25/17 07:28 98.6 110 18 186/95 98 01/24/17 14:29 Nasal Cannula 01/23/17 15:00 2.0 Intake and Output 01/24/17 01/24/17 01/25/17 15:00 23:00 07:00 Intake Total 1450 ml 700 ml Output Total 1600 ml 1400 ml Balance -150 ml -700 ml Exam vss, heent negative, lungs clear, heart regular rhythm Constitutional: alert ENMT: nl external ears & nose Respiratory: clear to auscultation Cardiovascular: regular rate and rhythm Results Result Diagram: 01/25/17 0532 01/25/17 0532 Results 24 hrs Laboratory Tests Test 01/25/17 05:31 01/25/17 05:32 01/25/17 06:49 01/25/17 09:58 Prothrombin Time 30.1 H Prothrombin Time Ratio 2.4 INR International Normalized Ratio 2.83 White Blood Count 19.2 H Red Blood Count 3.15 L Hemoglobin 9.1 L Hematocrit 25.9 L Mean Corpuscular Volume 82.2 Mean Corpuscular Hemoglobin 28.9 L Mean Corpuscular Hemoglobin Concent 35.1 Red Cell Distribution Width 23.8 H Platelet Count 77 #L Mean Platelet Volume Neutrophils % Segmented Neutrophils % (Manual) 83 H Band Neutrophils % (Manual) 1 Lymphocytes % Lymphocytes % (Manual) 5 L Reactive Lymphocytes % (Manual) 1 H Monocytes % Monocytes % (Manual) 7 Eosinophils % Basophils % Metamyelocytes % (manual) 1 H Myelocytes % (Manual) 1 H Promyelocytes % (Manual) 1 H Nucleated Red Blood Cells % 15 H Neutrophils # (Manual) 16 H Band Neutrophils # 0.1 Absolute Lymphocytes (Manual) 0.9 Lymphocytes # Reactive Lymphocytes # 0.1 H Monocytes # Absolute Monocytes (Manual) 1.3 H Eosinophils # Basophils # Metamyelocytes # 0.1 H Myelocytes # 0.1 H Promyelocytes # 0 Nucleated Red Blood Cells # Thrombocytosis 3 H Platelet Estimate DECREASED Polychromasia 3+ Hypochromasia 2+ Poikilocytosis 2+ Anisocytosis 2+ Microcytosis 1+ Macrocytosis 1+ Erythrocyte Sedimentation Rate 46 H Sodium Level 131 L Potassium Level 4.5 Chloride Level 101 Carbon Dioxide Level 20 L Anion Gap 15 Blood Urea Nitrogen 18 Creatinine 0.88 Glucose Level 109 Calcium Level 8.1 L Lab Scanned Report BLOOD TRANSFUSION Vancomycin Level Trough 10.0 Medications Medications Current Medications Ondansetron HCl (Zofran Tab) 4 mg Q6H PRN PO NAUSEA AND/OR VOMITING; Start at 12:30 Oxycodone/ Acetaminophen (Percocet (5/ 325)) 1 tab Q6H PRN PO MODERATE PAIN LEVEL 4-6; Start 01/23/17 at 12:30 Oxycodone/ Acetaminophen (Percocet (5/ 325)) 2 tab Q6H PRN PO SEVERE PAIN LEVEL 7-10 Last administered on 01/25/17 03:23; Admin Dose 2 TAB; Start at 12:30 Hydromorphone HCl (Dilaudid) 0.5 mg Q4H PRN IV SEVERE PAIN LEVEL 7-10 Last administered on 01/25/17 08:02; Admin Dose 0.5 MG; Start 01/23/17 at 12:30 Docusate Sodium (Colace) 100 mg Q12H PRN PO CONSTIPATION; Start 01/23/17 at 12: 30 Magnesium Hydroxide (Milk Of Mag) 30 ml DAILY PRN PO CONSTIPATION; Start at 12:30 Famotidine (Pepcid) 20 mg Q12 PO Last administered on 01/25/17 08:02; Admin Dose 20 MG; Start 01/23/17 at 21:00 Amiodarone HCl (Cordarone) 200 mg DAILY PO Last administered on 01/25/17 08:02 ; Admin Dose 200 MG; Start 01/24/17 at 09:00 Cyclobenzaprine HCl (Flexeril) 10 mg Q8 PRN PO PAIN; Start 01/23/17 at 12:30 Tamsulosin HCl (Flomax) 0.4 mg DAILY PO Last administered on 01/25/17 08:01; Admin Dose 0.4 MG; Start 01/24/17 at 09:00 Warfarin Sodium (Coumadin) 5 mg DAILY@17 PO Last administered on 01/24/17 17: 08; Admin Dose 5 MG; Start 01/23/17 at 17:00 Levothyroxine Sodium 50 mcg 50 mcg QAM@0630 PO Last administered on 01/25/17 05:59; Admin Dose 50 MCG; Start 01/24/17 at 06:30 Vancomycin HCl 250 ml @ 125 mls/hr Q12H IVPB Last administered on 01/25/17 12 :25; Admin Dose 125 MLS/HR; Start 01/24/17 at 11:00 Cefotaxime Sodium (Claforan 1gm/50 ml (Pmx)) 50 ml @ 100 mls/hr Q8 IVPB Last administered on 01/25/17 05:59; Admin Dose 100 MLS/HR; Start 01/24/17 at 14:00 ; Stop 01/31/17 at 13:59 SAMUEL SAUNDERS MD Jan 25, 2017 13:33
[2017-01-25 14:11] VITALS: BP 160/79; RESP 18
[2017-01-25] MEDS: WARFARIN 5 MG TAB PO SCH (16:54)
[2017-01-25 19:32] VITALS: BP 141/70
[2017-01-25 20:00] VITALS: BP 151/86; PULSE 103; RESP 18
[2017-01-25] MEDS: MAGNESIUM HYDROXIDE 30ML CUP PO PRN (22:50)
[2017-01-26] MEDS: HYDROmorphONE 1 MG/ML SYG IV PRN ×3 (00:27→21:52)
[2017-01-26 02:00] VITALS: BP 131/63; RESP 20
[2017-01-26 05:42] LABS: ABNORMAL IP MESSAGE 1; BASOPHILS % 0.1 % (0.0-2.0); EOSINOPHILS # 0.1 10^3/ul (0.0-0.5); EOSINOPHILS % 0.8 % (0.0-7.0); HEMATOCRIT 21.8 % (42.0-52.0); HEMOGLOBIN 7.4 g/dl (14.0-18.0); LYMPHOCYTES # 1.2 10^3/ul (0.8-2.9); LYMPHOCYTES % 7.3 % (15.0-51.0); MEAN CORPUSCULAR HGB CONC 33.9 g/dl (32.0-37.0); MEAN CORPUSCULAR VOLUME 82.6 fl (82.0-101.0); MONOCYTE # 1.9 10^3/ul (0.3-0.9); MONOCYTES % 11.8 % (0.0-11.0); NEUTROPHILS % 76.7 % (39.0-77.0); NUCLEATED RED BLOOD CELLS # 3.2 10^3/ul (0.0-0.0); NUCLEATED RED BLOOD CELLS% 20.4 /100WBC (0.0-0.0); POSITIVE DIFF @See below; RED BLOOD COUNT 2.64 10^6/ul (4.70-6.10); RED CELL DISTRIBUTION WIDTH 23.3 % (11.5-14.5); WHITE BLOOD COUNT 15.9 10^3/ul (4.8-10.8)
[2017-01-26] MEDS: LEVOTHYROXINE 50 MCG TAB PO SCH (05:56)
[2017-01-26] MEDS: CEFOTAXIME 1 GM/50 ML (PMX) 50 ML IVPB SCH ×3 (05:56→21:56)
[2017-01-26 06:01] LABS: INR 2.81; PT RATIO 2.3
[2017-01-26 06:18] LABS: ALBUMIN 2.9 g/dl (3.3-4.9); ALBUMIN/GLOBULIN RATIO 0.85; BILIRUBIN,DIRECT 1.2 mg/dl (0.00-0.20); BILIRUBIN,INDIRECT 4.6 mg/dl (0-1.1); BILIRUBIN,TOTAL 5.8 mg/dl (0.2-1.3); CREATININE 0.8 mg/dl (0.61-1.24); POTASSIUM 4.4 mmol/L (3.5-5.1); TOTAL PROTEIN 6.3 g/dl (6.1-8.1)
[2017-01-26] MEDS: OXYCODONE/ACETAMINOPHEN (5/325) TAB PO PRN ×3 (06:31→19:53)
[2017-01-26 06:43] LABS: PLATELET COUNT 65 10^3/UL (140-415)
[2017-01-26 07:32] VITALS: BP 148/71; RESP 18
[2017-01-26 07:53] LABS: ANISOCYTOSIS 1+ (0-0); BASOPHILS % (M) 1 % (0-2); EOSINOPHILS % (M) 2 % (0-7); ERYTHROBLAST% (NRBC) (M) 4 % (0-0); GIANT THROMBO% (M) 2 % (0-0); HYPOCHROMASIA 1+ (0-0); MONOCYTES % (M) 16 % (0-11); PLATELET ESTIMATE SIG DECREASED; POIKILOCYTOSIS 2+ (0-0); POLYCHROMASIA 3+ (0-0); PROMYELOCYTES #M 0 # (0-0); PROMYELOCYTES % (M) 1 % (0-0); SICKLE CELL 1+ (0-0)
[2017-01-26] MEDS: TAMSULOSIN (SR) 0.4 MG CAP PO SCH (08:57)
[2017-01-26] MEDS: FAMOTIDINE 20 MG TAB PO SCH ×2 (08:57→21:52)
[2017-01-26] MEDS: AMIODARONE 200 MG TAB PO SCH (09:00)
[2017-01-26] MEDS: VANCOMYCIN 1 GM in NS 250 ML IVPB SCH ×2 (10:14→23:38)
--- NOTE | 2017-01-26 11:51 | PN ---
Date/Time of Note Date/Time of Note DATE: 01/26/17 TIME: 11:44 Assessment/Plan VTE Prophylaxis VTE Prophylaxis Intervention: other (coumadin) Lines/Catheters IV C[facility] Type (from [facility] Peripheral IV Urinary Cath still in place: No Assessment/Plan Chief Complaint/Hosp Course worse of sickle crisis seems over however still not back to baseline Problems: Assessment/Plan will have patient ambulate with pt also spoke to [employer] member dr.s. mike who will see patient today.will switch to oral antibiotics soon. Subjective 24 Hr Interval Summary Constitutional: no complaints Eyes: no complaints ENT: no complaints Respiratory: no complaints Cardiovascular: no complaints Gastrointestinal: no complaints Genitourinary: no complaints Musculoskeletal: bone/joint pain Skin: no complaints Psychological: no complaints Exam/Review of Systems Vital Signs Vitals Vital Signs Date Time Temp Pulse Resp B/P Pulse Ox O2 Delivery O2 Flow Rate FiO2 01/26/17 07:32 98.9 108 18 148/71 91 01/25/17 20:00 Nasal Cannula 01/23/17 15:00 2.0 Intake and Output 01/25/17 01/25/17 01/26/17 15:00 23:00 07:00 Intake Total 250 ml 1250 ml 900 ml Output Total 1200 ml 1140 ml Balance 250 ml 50 ml -240 ml Exam Constitutional: alert, oriented Psych: no complaints Head: normocephalic ENMT: nl external ears & nose Neck: supple Respiratory: clear to auscultation Cardiovascular: regular rate and rhythm Gastrointestinal: soft Musculoskeletal: other (left knee pain djd) Results Result Diagram: 01/26/17 0506 01/26/17 0506 Results 24 hrs Laboratory Tests Test 01/26/17 05:06 White Blood Count 15.9 H Red Blood Count 2.64 L Hemoglobin 7.4 L Hematocrit 21.8 L Mean Corpuscular Volume 82.6 Mean Corpuscular Hemoglobin 28.0 L Mean Corpuscular Hemoglobin Concent 33.9 Red Cell Distribution Width 23.3 H Platelet Count 65 L Mean Platelet Volume Neutrophils % 76.7 Segmented Neutrophils % (Manual) 70 Lymphocytes % 7.3 L Lymphocytes % (Manual) 10 L Monocytes % 11.8 H Monocytes % (Manual) 16 H Eosinophils % 0.8 Eosinophils % (Manual) 2 Basophils % 0.1 Basophils % (Manual) 1 Promyelocytes % (Manual) 1 H Nucleated Red Blood Cells % 4 H Neutrophils # (Manual) Absolute Lymphocytes (Manual) 1.5 Lymphocytes # 1.2 Monocytes # 1.9 H Absolute Monocytes (Manual) 2.5 H Eosinophils # 0.1 Basophils # 0.0 Basophils # (Manual) 0.1 H Promyelocytes # 0 Nucleated Red Blood Cells # 3.2 H Thrombocytosis 2 H Platelet Estimate SIG DECREASED Polychromasia 3+ Hypochromasia 1+ Poikilocytosis 2+ Anisocytosis 1+ Macrocytosis 1+ Sickle Cells 1+ Prothrombin Time 30.0 H Prothrombin Time Ratio 2.3 INR International Normalized Ratio 2.81 Sodium Level 135 Potassium Level 4.4 Chloride Level 99 Carbon Dioxide Level 25 Anion Gap 15 Blood Urea Nitrogen 25 H Creatinine 0.80 Glucose Level 106 Calcium Level 8.0 L Total Bilirubin 5.8 H Direct Bilirubin 1.20 #H Indirect Bilirubin 4.6 H Aspartate Amino Transf (AST/SGOT) 57 H Alanine Aminotransferase (ALT/SGPT) 46 Alkaline Phosphatase 324 #H Total Protein 6.3 Albumin 2.9 L Globulin 3.40 H Albumin/Globulin Ratio 0.85 Medications Medications Current Medications Ondansetron HCl (Zofran Tab) 4 mg Q6H PRN PO NAUSEA AND/OR VOMITING; Start at 12:30 Oxycodone/ Acetaminophen (Percocet (5/ 325)) 1 tab Q6H PRN PO MODERATE PAIN LEVEL 4-6; Start 01/23/17 at 12:30 Oxycodone/ Acetaminophen (Percocet (5/ 325)) 2 tab Q6H PRN PO SEVERE PAIN LEVEL 7-10 Last administered on 01/26/17 06:31; Admin Dose 2 TAB; Start at 12:30 Hydromorphone HCl (Dilaudid) 0.5 mg Q4H PRN IV SEVERE PAIN LEVEL 7-10 Last administered on 01/26/17 05:56; Admin Dose 0.5 MG; Start 01/23/17 at 12:30 Docusate Sodium (Colace) 100 mg Q12H PRN PO CONSTIPATION; Start 01/23/17 at 12: 30 Magnesium Hydroxide (Milk Of Mag) 30 ml DAILY PRN PO CONSTIPATION Last administered on 01/25/17 22:50; Admin Dose 30 ML; Start 01/23/17 at 12:30 Famotidine (Pepcid) 20 mg Q12 PO Last administered on 01/26/17 08:57; Admin Dose 20 MG; Start 01/23/17 at 21:00 Amiodarone HCl (Cordarone) 200 mg DAILY PO Last administered on 01/26/17 09:00 ; Admin Dose 200 MG; Start 01/24/17 at 09:00 Cyclobenzaprine HCl (Flexeril) 10 mg Q8 PRN PO PAIN; Start 01/23/17 at 12:30 Tamsulosin HCl (Flomax) 0.4 mg DAILY PO Last administered on 01/26/17 08:57; Admin Dose 0.4 MG; Start 01/24/17 at 09:00 Warfarin Sodium (Coumadin) 5 mg DAILY@17 PO Last administered on 01/25/17 16: 54; Admin Dose 5 MG; Start 01/23/17 at 17:00 Levothyroxine Sodium 50 mcg 50 mcg QAM@0630 PO Last administered on 01/26/17 05:56; Admin Dose 50 MCG; Start 01/24/17 at 06:30 Vancomycin HCl 250 ml @ 125 mls/hr Q12H IVPB Last administered on 01/26/17 10 :14; Admin Dose 125 MLS/HR; Start 01/24/17 at 11:00 Cefotaxime Sodium (Claforan 1gm/50 ml (Pmx)) 50 ml @ 100 mls/hr Q8 IVPB Last administered on 01/26/17 05:56; Admin Dose 100 MLS/HR; Start 01/24/17 at 14:00 ; Stop 01/31/17 at 13:59 SAMUEL SAUNDERS MD Jan 26, 2017 11:50
[2017-01-26 13:20] VITALS: BP 155/70; RESP 19
[2017-01-26] MEDS: MAGNESIUM HYDROXIDE 30ML CUP PO PRN (17:46)
[2017-01-26] MEDS: WARFARIN 2.5 MG TAB PO SCH (17:47)
[2017-01-26 19:41] VITALS: BP 155/73; RESP 20
--- NOTE | 2017-01-26 22:22 | EN ---
Date/Time of Note Date/Time of Note DATE: 01/26/17 TIME: 22:13 Event Note Medicine Medicine Event Note HEMATOLOGY CONSULTATION DICTATED-- . Pt is a 66 y/o with known diagnosis of sickle cell anemia. Admitted with increasing lower back pain which has now expanded to include shoulder and Lt knee. Pt did not note fevers, chills, cough or SOB prior to admit. No c/o dysuria or hematuria but urine C&S growing E Coli and Citrobacter. I son antibiotic to which both are sensitive. Pt has been given 3 units of RBC's and today Hgb was 7.5 prior to last unit of RBC's. Pt usual Hgb is 7.0-7.5. Pt states that he does take 4 mg of folic acid daily. Has never taken hydroxyurea. Will start pt on folic acid, 4 mg daily. Will recheck CBC, retic ct, CMP, haptoglobin in AM. Will order CXR in AM. Will also check Hgb electrophoresis to determine presence of Hgb which may have be responsible for the low frequency of this patient's crises. JULIANA HOWE MD Jan 26, 2017 22:22
--- NOTE | 2017-01-26 23:46 | CONS ---
DATE OF ADMISSION: 01/25/2017 DATE OF CONSULTATION: 01/26/2017 Hematology consultation PHYSICIAN REQUESTING CONSULTATION: Huey Murphy MD and Edwin Luna MD REASON FOR CONSULTATION: Sickle cell anemia with crisis. Dear Dr. Murphy and Dr. Luna, Thank you very much for asking me see this very pleasant gentleman in hematologic consultation. As you know, Mr. Esteban is a 66-year-old male who has a known history of sickle cell anemia. The patient is admitted to [facility] at this time on 01/23/2017. The patient approximately 24 hours began to develop lower back pain. This pain increased and spread to include shoulder as well as left knee pain. The patient states that this is similar to his other crisis's in the past. As noted, this patient does have sickle cell anemia. It is interesting to note; however, that he does not have frequent crisis's. His last was approximately 3 years ago. He states that even when younger his crisis's were infrequent. They may have been as far apart as every 6 years. The patient, as mentioned, has had lower back shoulder and knee pain. He denies chest pain, cough, or hemoptysis. He had no fevers, chills, or night sweats prior to admission. He denies dysuria or hematuria. On admission, the patient had a white blood cell count of 15,300, with 72 percent segs, 10 percent lymphocytes, 16 percent monocytes and 4 nucleated red blood cells per 100 white blood cells. Hemoglobin was 6.7, hematocrit 20, MCV 82.3, MCH 27.6, MCHC 33, and RDW 24.1, and platelet count 221,000. The patient has since been transfused with packed red blood cells, has received 3 units of packed red blood cells, two of them on 01/23 and 1 today on 01/26. The blood transfusion today was given at 12:41. This morning however at 0500, the patient's hemoglobin was 7.4, hematocrit 21.8. White count was 15,900, and platelet count had dropped to 65,000. The patient has had a urine culture on 01/23 obtained by catheterization. This did show E coli, as well as Citrobacter. Both are sensitive to Cefotaxime, ciprofloxacin, gentamicin, levofloxacin, tobramycin, and Bactrim. The patient is presently receiving Cefotaxime every 8 hours. The patient has also been receiving vancomycin. LABORATORY: Include a prothrombin time of 21 seconds with INR of 1.2.48. On admission, the sodium is 136, potassium 5.3, creatinine 0.97, BUN 24, calcium 8.3, albumin 4.2, total bilirubin 3.5, direct bilirubin 0.1, indirect bilirubin 3.4. A sedimentation rate was 46. On admission, the absolute reticulocyte count was 158,000 with a 6.5 percent reticulocyte count. PAST MEDICAL HISTORY: Significant for the diagnosis of sickle cell anemia. The patient also has history of rheumatoid arthritis. He has also had a history of paroxysmal atrial fibrillation and states he did have a pulmonary embolism after a hip surgery in 1998. Other problems include osteoarthritis. He has also had benign prostatic hypertrophy. PAST SURGICAL HISTORY: Have included bilateral hip replacements and right total knee replacement, it is unclear if these were due to avascular necrosis on the basis of his sickle cell disease. MEDICATION: At this time include warfarin, MPL, and amiodarone. The patient also states that he takes folic acid 4 mg on a daily basis. ALLERGIES: TO MORPHINE WHICH CAUSES HYPOVENTILATION. SOCIAL HISTORY: The patient is this unmarried. He is retired at this time. 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 He has not knowingly been exposed to industrial toxins or ionizing radiation. The patient has never smoked and uses alcohol very infrequently. FAMILY HISTORY: Remarkable in that his mother is still alive in her 90s. Father at 86, neither had sickle cell. Anemia. None of his siblings have sickle cell anemia but one nephew does have sickle cell disease. The patient has no children. PHYSICAL EXAMINATION: At this time reveals a well-developed, well-nourished, male, who is in no acute distress. VITAL SIGNS: Temperature 99.7, pulse 98 per minute, respirations 20, blood pressure 155/73, pulse oximetry 92 percent. The patient has had a T-max during this hospitalization of 101 degrees on 01/24. SKIN: No ecchymoses, no petechiae or rashes. The patient does have some vitiligo on his face. HEENT: Normocephalic. No evidence of trauma. The pupils equal, round, react to light and accommodation. Sclerae are mildly icteric. Extraocular muscles are intact. His oral mucosa is moist. No lesions. Tongue is well papillated. No gingival hyperplasia. No hypertrophy of Waldeyer's ring. NECK: Supple. There is no jugular distention or thyroid enlargement. CHEST: Clear to auscultation and percussion. No rhonchi, wheezes, rales, or rubs. HEART: Regular sinus rhythm. No S3, S4, murmurs, no rubs. There is no pain on percussion of spine, sternum, clavicles or ribs. BREASTS: No gynecomastia. ABDOMEN: Soft, slightly protuberant. The hepatic edge is palpable approximately 3 cm below the right costal margin in the midclavicular line. The spleen is not palpable. EXTREMITIES: No clubbing, edema, or cyanosis. No palpable cords or Homans sign. There is evidence of the bilateral hip replacements as well as a right total knee replacement. There are changes in the in the hands and fingers consistent with rheumatoid arthritis. NEUROLOGIC: He is normal. There are no focal neurologic abnormalities. DISCUSSION: This patient is known to have sickle cell anemia. It is interesting that he has such infrequent crisis's and even had infrequent crises as a child. One wonders whether the patient actually has a high level of hemoglobin which protects him from crises. The patient as noted, has been taking folic acid. He states he is taking 4 mg a day. I will restart that at the present time. The patient states he has never taken hydroxyurea. This medication does increase the production of hemoglobin and therefore decreases the number of crisis's these patients experience. As this patient has such infrequent painful crisis's I would expected that use of hydroxyurea may not be necessary. The patient has been transfused. Today his hemoglobin is 7.4. Review of old hospital records demonstrate that his usual hemoglobin is somewhere between 7 and 7.5. I would hold the transfusions at this time. The patient is receiving hydration and also antibiotics therapy as well as oxygen supplementation. As noted, I will start the patient on folic acid 4 mg daily. Will also repeat a CBC and reticulocyte count, haptoglobin, and chemistry panel in the morning. I will also order a chest x-ray. As mentioned, the infrequent crisis's suggests that the patient has more than just hemoglobin SS. I will obtain a hemoglobin electrophoresis to determine if the patient does have a high level of hemoglobin. Once again, thank you very much for the opportunity of participating in the medical care of this very pleasant patient. I will be happy to follow the patient with you and assist in his hematologic evaluation and followup as necessary. Dictated By: Billy Dill MD /nan/sal /Document#: [id number]
[2017-01-27 02:30] VITALS: BP 148/67; RESP 20
[2017-01-27 06:11] LABS: ABNORMAL IP MESSAGE 1; BASOPHILS % 0.2 % (0.0-2.0); EOSINOPHILS # 0.2 10^3/ul (0.0-0.5); EOSINOPHILS % 1.7 % (0.0-7.0); HEMATOCRIT 22.9 % (42.0-52.0); HEMOGLOBIN 7.9 g/dl (14.0-18.0); LYMPHOCYTES # 1.1 10^3/ul (0.8-2.9); LYMPHOCYTES % 7.6 % (15.0-51.0); MEAN CORPUSCULAR HEMOGLOBIN 28.9 pg (29.0-33.0); MEAN CORPUSCULAR HGB CONC 34.5 g/dl (32.0-37.0); MEAN CORPUSCULAR VOLUME 83.9 fl (82.0-101.0); MONOCYTE # 2.1 10^3/ul (0.3-0.9); MONOCYTES % 15.5 % (0.0-11.0); NEUTROPHILS % 71.7 % (39.0-77.0); NUCLEATED RED BLOOD CELLS # 4.2 10^3/ul (0.0-0.0); NUCLEATED RED BLOOD CELLS% 30.7 /100WBC (0.0-0.0); PLATELET COUNT 75 10^3/UL (140-415); POSITIVE DIFF @See below; RED BLOOD COUNT 2.73 10^6/ul (4.70-6.10); RETICULOCYTE COUNT % 9.3 % (0.5-1.5); WHITE BLOOD COUNT 13.8 10^3/ul (4.8-10.8)
[2017-01-27] MEDS: CEFOTAXIME 1 GM/50 ML (PMX) 50 ML IVPB SCH ×3 (06:22→21:42)
[2017-01-27] MEDS: LEVOTHYROXINE 50 MCG TAB PO SCH (06:24)
[2017-01-27] MEDS: OXYCODONE/ACETAMINOPHEN (5/325) TAB PO PRN ×3 (06:26→21:47)
[2017-01-27 06:50] LABS: ALBUMIN 2.6 g/dl (3.3-4.9); ALBUMIN/GLOBULIN RATIO 0.72; BILIRUBIN,DIRECT 0.3 mg/dl (0.00-0.20); BILIRUBIN,INDIRECT 2.4 mg/dl (0-1.1); BILIRUBIN,TOTAL 2.7 mg/dl (0.2-1.3); CALCIUM 7.7 mg/dl (8.4-10.2); CREATININE 0.75 mg/dl (0.61-1.24); POTASSIUM 4.2 mmol/L (3.5-5.1); TOTAL PROTEIN 6.2 g/dl (6.1-8.1)
--- NOTE | 2017-01-27 08:05 | PN ---
Date/Time of Note Date/Time of Note DATE: 01/27/17 TIME: 07:58 Assessment/Plan VTE Prophylaxis VTE Prophylaxis Intervention: other (coumadin) Lines/Catheters IV Catheter Type (from Nrs): Peripheral IV Urinary Cath still in place: No Assessment/Plan Chief Complaint/Hosp Course worse of sickle crisis seems over however still not back to baseline Problems: Assessment/Plan plan will switch to oral antibiotic tocday ,fleets enema .stool softeners and laxative if needed continue progressive ambulation.hematology consult appreciated Subjective 24 Hr Interval Summary Free Text/Dictation patient alert this am still complaining of left knee pain and today of constipation Exam/Review of Systems Vital Signs Vitals Vital Signs Date Time Temp Pulse Resp B/P Pulse Ox O2 Delivery O2 Flow Rate FiO2 01/27/17 02:30 99.2 89 20 148/67 99 01/25/17 20:00 Nasal Cannula 01/23/17 15:00 2.0 Intake and Output 01/26/17 01/26/17 01/27/17 15:00 23:00 07:00 Intake Total 250 ml 1630 ml 300 ml Output Total 800 ml Balance 250 ml 830 ml 300 ml Exam vss heent negative o2 per nasal cannula lungs clear heart regular rhythm abdomen soft slightly distended bowel sound present Results Result Diagram: 01/27/17 0520 01/27/17 0520 Results 24 hrs Laboratory Tests Test 01/27/17 05:20 01/27/17 06:20 White Blood Count 13.8 H Red Blood Count 2.73 L Hemoglobin 7.9 L Hematocrit 22.9 L Mean Corpuscular Volume 83.9 Mean Corpuscular Hemoglobin 28.9 L Mean Corpuscular Hemoglobin Concent 34.5 Red Cell Distribution Width 22.0 H Platelet Count 75 L Mean Platelet Volume Neutrophils % 71.7 Lymphocytes % 7.6 L Monocytes % 15.5 H Eosinophils % 1.7 Basophils % 0.2 Nucleated Red Blood Cells % 30.7 H Neutrophils # (Manual) 10 H Lymphocytes # 1.1 Monocytes # 2.1 H Eosinophils # 0.2 Basophils # 0.0 Nucleated Red Blood Cells # 4.2 H Absolute Reticulocyte Count 0.253 H Percent Reticulocyte Count 9.3 H Sodium Level 135 Potassium Level 4.2 Chloride Level 99 Carbon Dioxide Level 26 Anion Gap 14 Blood Urea Nitrogen 21 H Creatinine 0.75 Glucose Level 94 Calcium Level 7.7 L Total Bilirubin 2.7 #H Direct Bilirubin 0.30 #H Indirect Bilirubin 2.4 H Aspartate Amino Transf (AST/SGOT) 46 Alanine Aminotransferase (ALT/SGPT) 41 Alkaline Phosphatase 298 H Total Protein 6.2 Albumin 2.6 L Globulin 3.60 H Albumin/Globulin Ratio 0.72 Lab Scanned Report BLOOD TRANSFUSION Medications Medications Current Medications Ondansetron HCl (Zofran Tab) 4 mg Q6H PRN PO NAUSEA AND/OR VOMITING; Start at 12:30 Oxycodone/ Acetaminophen (Percocet (5/ 325)) 1 tab Q6H PRN PO MODERATE PAIN LEVEL 4-6 Last administered on 01/26/17 12:34; Admin Dose 1 TAB; Start at 12:30 Oxycodone/ Acetaminophen (Percocet (5/ 325)) 2 tab Q6H PRN PO SEVERE PAIN LEVEL 7-10 Last administered on 01/27/17 06:26; Admin Dose 2 TAB; Start at 12:30 Hydromorphone HCl (Dilaudid) 0.5 mg Q4H PRN IV SEVERE PAIN LEVEL 7-10 Last administered on 01/26/17 21:52; Admin Dose 0.5 MG; Start 01/23/17 at 12:30 Docusate Sodium (Colace) 100 mg Q12H PRN PO CONSTIPATION; Start 01/23/17 at 12: 30 Magnesium Hydroxide (Milk Of Mag) 30 ml DAILY PRN PO CONSTIPATION Last administered on 01/26/17 17:46; Admin Dose 30 ML; Start 01/23/17 at 12:30 Famotidine (Pepcid) 20 mg Q12 PO Last administered on 01/26/17 21:52; Admin Dose 20 MG; Start 01/23/17 at 21:00 Amiodarone HCl (Cordarone) 200 mg DAILY PO Last administered on 01/26/17 09:00 ; Admin Dose 200 MG; Start 01/24/17 at 09:00 Cyclobenzaprine HCl (Flexeril) 10 mg Q8 PRN PO PAIN; Start 01/23/17 at 12:30 Tamsulosin HCl (Flomax) 0.4 mg DAILY PO Last administered on 01/26/17 08:57; Admin Dose 0.4 MG; Start 01/24/17 at 09:00 Levothyroxine Sodium 50 mcg 50 mcg QAM@0630 PO Last administered on 01/27/17 06:24; Admin Dose 50 MCG; Start 01/24/17 at 06:30 Vancomycin HCl 250 ml @ 125 mls/hr Q12H IVPB Last administered on 01/26/17 23 :38; Admin Dose 125 MLS/HR; Start 01/24/17 at 11:00 Cefotaxime Sodium (Claforan 1gm/50 ml (Pmx)) 50 ml @ 100 mls/hr Q8 IVPB Last administered on 01/27/17 06:22; Admin Dose 100 MLS/HR; Start 01/24/17 at 14:00 ; Stop 01/31/17 at 13:59 Warfarin Sodium (Coumadin) 5 mg Q48H PO ; Start 01/27/17 at 17:00 Warfarin Sodium (Coumadin) 2.5 mg Q48H PO Last administered on 01/26/17 17:47 ; Admin Dose 2.5 MG; Start 01/26/17 at 17:00 Folic Acid (Folic Acid) 4 mg DAILY PO ; Start 01/27/17 at 09:00 SAMUEL SAUNDERS MD Jan 27, 2017 08:05
[2017-01-27 08:11] VITALS: BP 159/72; RESP 86
[2017-01-27] MEDS ORDERED: NA PHOSPHATE/BIPHOS 133 ML ENEMA PR ONE (08:30)
[2017-01-27] MEDS: DOCUSATE SODIUM 100 MG CAP PO SCH ×2 (08:35→21:42)
[2017-01-27] MEDS: MAGNESIUM HYDROXIDE 30ML CUP PO SCH (08:35)
[2017-01-27] MEDS: TAMSULOSIN (SR) 0.4 MG CAP PO SCH (08:36)
[2017-01-27] MEDS: FOLIC ACID 1 MG TAB PO SCH (08:36)
[2017-01-27] MEDS: FAMOTIDINE 20 MG TAB PO SCH ×2 (08:36→21:42)
[2017-01-27] MEDS: AMIODARONE 200 MG TAB PO SCH (08:37)
--- NOTE | 2017-01-27 12:22 | RADRPT ---
PROCEDURE: XR Chest. CLINICAL INDICATION: Shortness of breath. Sickle cell anemia. TECHNIQUE: Chest x-ray, single view. COMPARISON: None. FINDINGS: The cardiac silhouette is magnified. Mild aortic arch atherosclerotic calcification is observed. P ulmonary vascularity is within normal limits. Low lung volumes are present. Bibasilar subsegmental atelectatic changes are observed. Sclerosis of the bilateral humeral heads is observed and suggest sequelae of avascular necrosis. Degenerative changes of the shoulders are also present. The visua lized upper abdomen is unremarkable. IMPRESSION: Hypoinflation with bibasilar subsegmental atelectasis. RPTAT: [facility]ST .Jess Hollins MD, Date Time Electronically viewed and signed by .Jess Hollins MD, on 01/27/2017 12:21 .T/
[2017-01-27] MEDS: VANCOMYCIN 1 GM in NS 250 ML IVPB SCH (12:48)
[2017-01-27 15:23] LABS: HEMATOCRIT 23.1 % (38.5-50.0); HEMOGLOBIN 7.9 g/dL (13.2-17.1); MCH 28.9 pg (27.0-33.0); MCV 84.6 fL (80.0-100.0); RDW 20.7 % (11.0-15.0); RED BLOOD CELL COUNT 2.73 Million/uL (4.20-5.80)
[2017-01-27 16:01] VITALS: BP 154/74; RESP 18
[2017-01-27] MEDS: WARFARIN 5 MG TAB PO SCH (17:32)
--- NOTE | 2017-01-27 18:38 | PN ---
DATE: 01/27/2017 SUBJECTIVE: Patient states he is continuing to have pain in both shoulders as well as his left knee. The pain is worse with movement. Pain in shoulders is not increased by deep inspiration. The patient has had no cough or shortness of breath. No shaking chills. OBJECTIVE: GENERAL: Patient is a well-developed, well-nourished, male, who is in no acute distress. VITAL SIGNS: Temperature 101.2. Pulse 106 and regular, respirations 18, blood pressure 154/74, pulse oximetry 95 percent on room air. SKIN: No ecchymosis, no petechiae or rashes. HEENT: Normocephalic, no evidence of trauma. Pupils equal, round, react to light and accommodation. There is trace scleral icterus. There is vitiligo of the skin of the lower aspect of his face. Tongue is well papillated. No gingival hyperplasia. No hypertrophy of Waldeyer's ring. NECK: Neck is supple. No jugular distention, or thyroid enlargement. * CHEST: Clear to auscultation, percussion. No rhonchi, wheezes, rales, or rubs. No pain on percussion of spine, sternum, clavicles or ribs. HEART: Sinus tachycardia. No S3, S4, murmurs, no rubs. ABDOMEN: Soft. No masses. No ascites. Bowel sounds are active. EXTREMITIES: No clubbing, edema, or cyanosis. There is evidence of bilateral hip surgeries as well as right total knee replacement. LABORATORY AND DIAGNOSTIC DATA: Chest x-ray has been done. This shows "hypo inflation" with bibasilar sub segmental atelectasis. White count is 13,800 with an absolute neutrophil count of 4,000. The hemoglobin is 7.9, hematocrit 22.9, and platelet count 75,000. Chemistries is sodium 135, potassium 4.2, creatinine 0.75, calcium 7.7, bilirubin total 2.7, direct 0.3, indirect 2.4, AST of 46, ALT 41, alkaline phosphatase 298. Reticulocyte count is 253,000 with 9.3 percent reticulocytes. ASSESSMENT AND PLAN: 1. Sickle cell anemia with painful crisis. 2. Rheumatoid arthritis. 3. History of paroxysmal atrial fibrillation. 4. Osteoarthritis. PLAN: 1. We will continue present antibiotic therapy and hydration. 2. The patient has been started on folic acid supplementation. 3. I am concerned by the drop in the patient's platelet count. On admission, platelet count was 222,000, has now dropped to 75,000. There was no evidence of a consumptive coagulopathy. 4. We will repeat the pro time, PTT, fibrinogen and D-dimer in the morning. 5. The patient is not receiving heparin. We will however check for other anti-platelet antibodies. Also consider the possibility that the patient may be developing thrombocytopenia due to medications including cefotaxime. Dictated By: Billy Dill MD /nan/caitlyn /Document#: [id number]
[2017-01-27 19:48] VITALS: BP 155/66; RESP 20
[2017-01-27 22:11] VITALS: BP 155/70; PULSE 98
[2017-01-28] VITALS (7 sets, daily range): BP systolic 141–167; BP diastolic 62–74; PULSE 95–101; RESP 18–20
[2017-01-28] MEDS: HYDROmorphONE 1 MG/ML SYG IV PRN ×2 (02:35→19:59)
[2017-01-28] MEDS: LEVOTHYROXINE 50 MCG TAB PO SCH (05:54)
[2017-01-28] MEDS: CEFOTAXIME 1 GM/50 ML (PMX) 50 ML IVPB SCH (05:54)
[2017-01-28 06:33] LABS: HEMATOCRIT 22.6 % (42.0-52.0); HEMOGLOBIN 7.6 g/dl (14.0-18.0); MEAN CORPUSCULAR VOLUME 86.3 fl (82.0-101.0); RED BLOOD COUNT 2.62 10^6/ul (4.70-6.10); WHITE BLOOD COUNT 13.7 10^3/ul (4.8-10.8)
[2017-01-28 06:34] LABS: ABNORMAL IP MESSAGE 1; MEAN CORPUSCULAR HGB CONC 33.6 g/dl (32.0-37.0); NUCLEATED RED BLOOD CELLS% 20.3 /100WBC (0.0-0.0); POSITIVE DIFF @See below; RED CELL DISTRIBUTION WIDTH 22.4 % (11.5-14.5)
[2017-01-28 06:37] LABS: PLATELET COUNT 103 10^3/UL (140-415)
[2017-01-28 06:51] LABS: INR 2.21; PROTIME 24.8 Sec (12.2-14.2); PT RATIO 1.9
[2017-01-28 06:53] LABS: PARTIAL THROMBOPLASTIN TIME 69.3 Sec (25.0-35.0)
[2017-01-28 07:40] LABS: ANISOCYTOSIS 1+ (0-0); EOSINOPHILS % (M) 2 % (0-7); ERYTHROBLAST% (NRBC) (M) 52 % (0-0); GIANT THROMBO% (M) 3 % (0-0); HYPOCHROMASIA 3+ (0-0); METAMYELOCYTES %M 2 % (0-0); MONOCYTES % (M) 11 % (0-11); MYELOCYTES % (M) 2 % (0.0-0.0); PLATELET ESTIMATE DECREASED; POIKILOCYTOSIS 1+ (0-0); POLYCHROMASIA 1+ (0-0)
[2017-01-28 07:49] LABS: D-DIMER > 10000.00 ng/ml (<460)
[2017-01-28] MEDS: DOCUSATE SODIUM 100 MG CAP PO SCH ×2 (08:26→19:58)
[2017-01-28] MEDS: FAMOTIDINE 20 MG TAB PO SCH ×2 (08:26→19:58)
[2017-01-28] MEDS: TAMSULOSIN (SR) 0.4 MG CAP PO SCH (08:26)
[2017-01-28] MEDS: AMIODARONE 200 MG TAB PO SCH (08:27)
[2017-01-28] MEDS: FOLIC ACID 1 MG TAB PO SCH (08:27)
[2017-01-28] MEDS: MAGNESIUM HYDROXIDE 30ML CUP PO SCH (08:29)
--- NOTE | 2017-01-28 09:25 | PN ---
Date/Time of Note Date/Time of Note DATE: 01/28/17 TIME: 09:18 Assessment/Plan VTE Prophylaxis VTE Prophylaxis Intervention: other (coumadin) Lines/Catheters IV Catheter Type (from Nrs): Saline Lock Urinary Cath still in place: No Assessment/Plan Chief Complaint/Hosp Course worse of sickle crisis seems over however still not back to baseline Problems: Assessment/Plan plan will get ortho consult today possibly switch nto oral antibiotic re UTI will ask dr mike Subjective 24 Hr Interval Summary Free Text/Dictation stable complaining of left knee pain .being followed by donta marino re knee.otherwise feeling better Exam/Review of Systems Vital Signs Vitals Vital Signs Date Time Temp Pulse Resp B/P Pulse Ox O2 Delivery O2 Flow Rate FiO2 01/28/17 08:31 101 164/74 01/28/17 07:42 100.3 18 93 01/25/17 20:00 Nasal Cannula Intake and Output 01/27/17 01/27/17 01/28/17 15:00 23:00 07:00 Intake Total 1050 ml 1300 ml 800 ml Output Total 1400 ml 1250 ml 950 ml Balance -350 ml 50 ml -150 ml Exam low grade temp yesterday heent negative lungs clear heart regular rhythm left knee swollen no obvious erythema pain on motion Results Result Diagram: 01/28/17 0543 01/27/17 0520 Results 24 hrs Laboratory Tests Test 01/27/17 11:15 01/28/17 05:43 Stool Occult Blood NEGATIVE White Blood Count 13.7 H Red Blood Count 2.62 L Hemoglobin 7.6 L Hematocrit 22.6 L Mean Corpuscular Volume 86.3 Mean Corpuscular Hemoglobin 29.0 Mean Corpuscular Hemoglobin Concent 33.6 Red Cell Distribution Width 22.4 H Platelet Count 103 #L Mean Platelet Volume Neutrophils % Segmented Neutrophils % (Manual) 72 Band Neutrophils % (Manual) 1 Lymphocytes % Lymphocytes % (Manual) 10 L Monocytes % Monocytes % (Manual) 11 Eosinophils % Eosinophils % (Manual) 2 Basophils % Metamyelocytes % (manual) 2 H Myelocytes % (Manual) 2 H Nucleated Red Blood Cells % 52 H Neutrophils # (Manual) 10 H Band Neutrophils # 0.1 Absolute Lymphocytes (Manual) 1.3 Lymphocytes # Monocytes # Absolute Monocytes (Manual) 1.5 H Eosinophils # Basophils # Metamyelocytes # 0.2 H Myelocytes # 0.2 H Nucleated Red Blood Cells # Thrombocytosis 3 H Platelet Estimate DECREASED Polychromasia 1+ Hypochromasia 3+ Poikilocytosis 1+ Anisocytosis 1+ Macrocytosis 1+ Prothrombin Time 24.8 H Prothrombin Time Ratio 1.9 INR International Normalized Ratio 2.21 Activated Partial Thromboplast Time 69.3 H Fibrinogen 690.0 H D-Dimer > 51779.00 H Medications Medications Current Medications Ondansetron HCl (Zofran Tab) 4 mg Q6H PRN PO NAUSEA AND/OR VOMITING; Start at 12:30 Oxycodone/ Acetaminophen (Percocet (5/ 325)) 1 tab Q6H PRN PO MODERATE PAIN LEVEL 4-6 Last administered on 01/27/17 16:07; Admin Dose 1 TAB; Start at 12:30 Oxycodone/ Acetaminophen (Percocet (5/ 325)) 2 tab Q6H PRN PO SEVERE PAIN LEVEL 7-10 Last administered on 01/27/17 21:47; Admin Dose 2 TAB; Start at 12:30 Hydromorphone HCl (Dilaudid) 0.5 mg Q4H PRN IV SEVERE PAIN LEVEL 7-10 Last administered on 01/28/17 02:35; Admin Dose 0.5 MG; Start 01/23/17 at 12:30 Docusate Sodium (Colace) 100 mg Q12H PRN PO CONSTIPATION; Start 01/23/17 at 12: 30 Magnesium Hydroxide (Milk Of Mag) 30 ml DAILY PRN PO CONSTIPATION Last administered on 01/26/17 17:46; Admin Dose 30 ML; Start 01/23/17 at 12:30 Famotidine (Pepcid) 20 mg Q12 PO Last administered on 01/28/17 08:26; Admin Dose 20 MG; Start 01/23/17 at 21:00 Amiodarone HCl (Cordarone) 200 mg DAILY PO Last administered on 01/28/17 08:27 ; Admin Dose 200 MG; Start 01/24/17 at 09:00 Cyclobenzaprine HCl (Flexeril) 10 mg Q8 PRN PO PAIN; Start 01/23/17 at 12:30 Tamsulosin HCl (Flomax) 0.4 mg DAILY PO Last administered on 01/28/17 08:26; Admin Dose 0.4 MG; Start 01/24/17 at 09:00 Levothyroxine Sodium 50 mcg 50 mcg QAM@0630 PO Last administered on 01/28/17 05:54; Admin Dose 50 MCG; Start 01/24/17 at 06:30 Cefotaxime Sodium (Claforan 1gm/50 ml (Pmx)) 50 ml @ 100 mls/hr Q8 IVPB Last administered on 01/28/17 05:54; Admin Dose 100 MLS/HR; Start 01/24/17 at 14:00 ; Stop 01/31/17 at 13:59 Warfarin Sodium (Coumadin) 5 mg Q48H PO Last administered on 01/27/17 17:32; Admin Dose 5 MG; Start 01/27/17 at 17:00 Warfarin Sodium (Coumadin) 2.5 mg Q48H PO Last administered on 01/26/17 17:47 ; Admin Dose 2.5 MG; Start 01/26/17 at 17:00 Folic Acid (Folic Acid) 4 mg DAILY PO Last administered on 01/28/17 08:27; Admin Dose 4 MG; Start 01/27/17 at 09:00 Docusate Sodium (Colace) 100 mg BID PO Last administered on 01/28/17 08:26; Admin Dose 100 MG; Start 01/27/17 at 09:00 Magnesium Hydroxide (Milk Of Mag) 30 ml DAILY PO Last administered on 08:29; Admin Dose 30 ML; Start 01/27/17 at 09:00 SAMUEL SAUNDERS MD Jan 28, 2017 09:25
--- NOTE | 2017-01-28 10:10 | PN ---
Date/Time of Note Date/Time of Note DATE: 01/28/17 TIME: 10:05 Assessment/Plan VTE Prophylaxis VTE Prophylaxis Intervention: ambulation Lines/Catheters [facility] Saline Lock Urinary Cath still in place: No Assessment/Plan Assessment/Plan * Patient is about 1 week from cortisone injection to the left knee. Currently at this time repeat cortisone injection is not indicated. * Continue with pain medications being provided while inpatient. Anti- inflammatories were also recommended for ongoing osteoarthritis. * Recommend cold therapy to the knee for decreased inflammation while inpatient. * Patient was advised to continue with range of motion to the knee so that joints do not get stiff and create furthermore pain exacerbation. * Patient was made aware that if he continues with ongoing knee pain especially after discharge, he may follow-up at sooner appointment for repeat evaluation to the knee. Very likely that patient will need total knee arthroplasty given extensive degenerative joint disease with severe [id number] deformity to the medial compartment and patient was made aware of this on recent outpatient visit. Recommendation for joint replacement was discussed as well today. * Thank you Dr. Murphy for allowing us to see this patient. Subjective 24 Hr Interval Summary Free Text/Dictation 66-year-old male who is currently an inpatient admitted for sickle cell crisis. Currently being monitored by internal medicine and hematology. Patient was also having complaints of significant left knee pain. Patient is a patient of Dr. Bardales in regards to knee pain. Surgical intervention in regards to total knee arthroplasty was discussed with by Dr. Bardales. Last time seen by orthopedic surgeon was 01/19/2017 for cortisone injection to the left knee was performed. Patient states that he was having some relief but after his recent sickle cell crisis he has been having severe flareup. Pain is constant and usually with movement. Patient is able to move the knee but does have discomfort especially with weightbearing. Exam/Review of Systems Vital Signs Vitals Vital Signs Date Time Temp Pulse Resp B/P Pulse Ox O2 Delivery O2 Flow Rate FiO2 01/28/17 08:31 101 164/74 01/28/17 07:42 100.3 18 93 01/25/17 20:00 Nasal Cannula Intake and Output 01/27/17 01/27/17 01/28/17 15:00 23:00 07:00 Intake Total 1050 ml 1300 ml 800 ml Output Total 1400 ml 1250 ml 950 ml Balance -350 ml 50 ml -150 ml Exam * Tenderness to palpation primarily to the medial compartment * Patient is able to actively flex the knee up to 90 today and about 5 lag from full extension. Noted crepitus with range of motion. Pain with range of motion as well primarily to the medial compartment. * Equal temperature to the bilateral knee on exam. Negative Homans sign. Toes freely movable. Normal sensory examination to light touch. X-ray to the left knee performed on 01/19/2017 an outpatient facility/hip and knee [place] showing severe osteoarthritis with [id number] deformity to the medial compartment. About moderate joint space narrowing seen to the lateral compartment of the knee. Results Result Diagram: 01/28/17 0543 01/27/17 0520 Results 24 hrs Laboratory Tests Test 01/27/17 11:15 01/28/17 05:43 Stool Occult Blood NEGATIVE White Blood Count 13.7 H Red Blood Count 2.62 L Hemoglobin 7.6 L Hematocrit 22.6 L Mean Corpuscular Volume 86.3 Mean Corpuscular Hemoglobin 29.0 Mean Corpuscular Hemoglobin Concent 33.6 Red Cell Distribution Width 22.4 H Platelet Count 103 #L Mean Platelet Volume Neutrophils % Segmented Neutrophils % (Manual) 72 Band Neutrophils % (Manual) 1 Lymphocytes % Lymphocytes % (Manual) 10 L Monocytes % Monocytes % (Manual) 11 Eosinophils % Eosinophils % (Manual) 2 Basophils % Metamyelocytes % (manual) 2 H Myelocytes % (Manual) 2 H Nucleated Red Blood Cells % 52 H Neutrophils # (Manual) 10 H Band Neutrophils # 0.1 Absolute Lymphocytes (Manual) 1.3 Lymphocytes # Monocytes # Absolute Monocytes (Manual) 1.5 H Eosinophils # Basophils # Metamyelocytes # 0.2 H Myelocytes # 0.2 H Nucleated Red Blood Cells # Thrombocytosis 3 H Platelet Estimate DECREASED Polychromasia 1+ Hypochromasia 3+ Poikilocytosis 1+ Anisocytosis 1+ Macrocytosis 1+ Prothrombin Time 24.8 H Prothrombin Time Ratio 1.9 INR International Normalized Ratio 2.21 Activated Partial Thromboplast Time 69.3 H Fibrinogen 690.0 H D-Dimer > 40712.00 H Medications Medications Current Medications Ondansetron HCl (Zofran Tab) 4 mg Q6H PRN PO NAUSEA AND/OR VOMITING; Start at 12:30 Oxycodone/ Acetaminophen (Percocet (5/ 325)) 1 tab Q6H PRN PO MODERATE PAIN LEVEL 4-6 Last administered on 01/27/17 16:07; Admin Dose 1 TAB; Start at 12:30 Oxycodone/ Acetaminophen (Percocet (5/ 325)) 2 tab Q6H PRN PO SEVERE PAIN LEVEL 7-10 Last administered on 01/27/17 21:47; Admin Dose 2 TAB; Start at 12:30 Hydromorphone HCl (Dilaudid) 0.5 mg Q4H PRN IV SEVERE PAIN LEVEL 7-10 Last administered on 01/28/17 02:35; Admin Dose 0.5 MG; Start 01/23/17 at 12:30 Docusate Sodium (Colace) 100 mg Q12H PRN PO CONSTIPATION; Start 01/23/17 at 12: 30 Magnesium Hydroxide (Milk Of Mag) 30 ml DAILY PRN PO CONSTIPATION Last administered on 01/26/17 17:46; Admin Dose 30 ML; Start 01/23/17 at 12:30 Famotidine (Pepcid) 20 mg Q12 PO Last administered on 01/28/17 08:26; Admin Dose 20 MG; Start 01/23/17 at 21:00 Amiodarone HCl (Cordarone) 200 mg DAILY PO Last administered on 01/28/17 08:27 ; Admin Dose 200 MG; Start 01/24/17 at 09:00 Cyclobenzaprine HCl (Flexeril) 10 mg Q8 PRN PO PAIN; Start 01/23/17 at 12:30 Tamsulosin HCl (Flomax) 0.4 mg DAILY PO Last administered on 01/28/17 08:26; Admin Dose 0.4 MG; Start 01/24/17 at 09:00 Levothyroxine Sodium 50 mcg 50 mcg QAM@0630 PO Last administered on 01/28/17 05:54; Admin Dose 50 MCG; Start 01/24/17 at 06:30 Cefotaxime Sodium (Claforan 1gm/50 ml (Pmx)) 50 ml @ 100 mls/hr Q8 IVPB Last administered on 01/28/17 05:54; Admin Dose 100 MLS/HR; Start 01/24/17 at 14:00 ; Stop 01/31/17 at 13:59 Warfarin Sodium (Coumadin) 5 mg Q48H PO Last administered on 01/27/17 17:32; Admin Dose 5 MG; Start 01/27/17 at 17:00 Warfarin Sodium (Coumadin) 2.5 mg Q48H PO Last administered on 01/26/17 17:47 ; Admin Dose 2.5 MG; Start 01/26/17 at 17:00 Folic Acid (Folic Acid) 4 mg DAILY PO Last administered on 01/28/17 08:27; Admin Dose 4 MG; Start 01/27/17 at 09:00 Docusate Sodium (Colace) 100 mg BID PO Last administered on 01/28/17 08:26; Admin Dose 100 MG; Start 01/27/17 at 09:00 Magnesium Hydroxide (Milk Of Mag) 30 ml DAILY PO Last administered on 08:29; Admin Dose 30 ML; Start 01/27/17 at 09:00 KARAN OTOOLE PA-C Jan 28, 2017 10:10
[2017-01-28] MEDS ORDERED: ACETAMINOPHEN 500 MG TAB PO STA (10:39)
--- NOTE | 2017-01-28 13:44 | PN ---
Date/Time of Note Date/Time of Note DATE: 01/28/17 TIME: 13:40 Assessment/Plan VTE Prophylaxis VTE Prophylaxis Intervention: other (warfarin) Lines/Catheters [facility] Saline Lock Urinary Cath still in place: No Assessment/Plan Assessment/Plan Pt is improving clinically. Thrombocytopenia improved today. I t is not clear if this is due to change of antibiotic coverage or if it is resolution of infection. I would continue to monitor the CBC. Note that he is anemic but this is chronic and well tolerated so transfusion decision can be deferred for now. Also note that Hgb electrophoresis is still pending. Subjective 24 Hr Interval Summary Free Text/Dictation Pt is feeling better and says that he feels that he "turned the corner." Exam/Review of Systems Vital Signs Vitals Vital Signs Date Time Temp Pulse Resp B/P Pulse Ox O2 Delivery O2 Flow Rate FiO2 01/28/17 11:00 101.1 01/28/17 08:31 101 164/74 01/28/17 07:42 18 93 01/25/17 20:00 Nasal Cannula Intake and Output 01/27/17 01/27/17 01/28/17 15:00 23:00 07:00 Intake Total 1050 ml 1300 ml 800 ml Output Total 1400 ml 1250 ml 950 ml Balance -350 ml 50 ml -150 ml Exam Constitutional: alert, oriented Head: normocephalic Eyes: other (pallor) Neck: supple Respiratory: clear to auscultation Cardiovascular: regular rate and rhythm Gastrointestinal: nl liver, spleen, non-tender, soft Results Result Diagram: 01/28/17 0543 01/27/17 0520 Results 24 hrs Laboratory Tests Test 01/28/17 05:43 White Blood Count 13.7 H Red Blood Count 2.62 L Hemoglobin 7.6 L Hematocrit 22.6 L Mean Corpuscular Volume 86.3 Mean Corpuscular Hemoglobin 29.0 Mean Corpuscular Hemoglobin Concent 33.6 Red Cell Distribution Width 22.4 H Platelet Count 103 #L Mean Platelet Volume Neutrophils % Segmented Neutrophils % (Manual) 72 Band Neutrophils % (Manual) 1 Lymphocytes % Lymphocytes % (Manual) 10 L Monocytes % Monocytes % (Manual) 11 Eosinophils % Eosinophils % (Manual) 2 Basophils % Metamyelocytes % (manual) 2 H Myelocytes % (Manual) 2 H Nucleated Red Blood Cells % 52 H Neutrophils # (Manual) 10 H Band Neutrophils # 0.1 Absolute Lymphocytes (Manual) 1.3 Lymphocytes # Monocytes # Absolute Monocytes (Manual) 1.5 H Eosinophils # Basophils # Metamyelocytes # 0.2 H Myelocytes # 0.2 H Nucleated Red Blood Cells # Thrombocytosis 3 H Platelet Estimate DECREASED Polychromasia 1+ Hypochromasia 3+ Poikilocytosis 1+ Anisocytosis 1+ Macrocytosis 1+ Prothrombin Time 24.8 H Prothrombin Time Ratio 1.9 INR International Normalized Ratio 2.21 Activated Partial Thromboplast Time 69.3 H Fibrinogen 690.0 H D-Dimer > 38413.00 H Medications Medications Current Medications Ondansetron HCl (Zofran Tab) 4 mg Q6H PRN PO NAUSEA AND/OR VOMITING; Start at 12:30 Oxycodone/ Acetaminophen (Percocet (5/ 325)) 1 tab Q6H PRN PO MODERATE PAIN LEVEL 4-6 Last administered on 01/27/17 16:07; Admin Dose 1 TAB; Start at 12:30 Oxycodone/ Acetaminophen (Percocet (5/ 325)) 2 tab Q6H PRN PO SEVERE PAIN LEVEL 7-10 Last administered on 01/27/17 21:47; Admin Dose 2 TAB; Start at 12:30 Hydromorphone HCl (Dilaudid) 0.5 mg Q4H PRN IV SEVERE PAIN LEVEL 7-10 Last administered on 01/28/17 02:35; Admin Dose 0.5 MG; Start 01/23/17 at 12:30 Docusate Sodium (Colace) 100 mg Q12H PRN PO CONSTIPATION; Start 01/23/17 at 12: 30 Magnesium Hydroxide (Milk Of Mag) 30 ml DAILY PRN PO CONSTIPATION Last administered on 01/26/17 17:46; Admin Dose 30 ML; Start 01/23/17 at 12:30 Famotidine (Pepcid) 20 mg Q12 PO Last administered on 01/28/17 08:26; Admin Dose 20 MG; Start 01/23/17 at 21:00 Amiodarone HCl (Cordarone) 200 mg DAILY PO Last administered on 01/28/17 08:27 ; Admin Dose 200 MG; Start 01/24/17 at 09:00 Cyclobenzaprine HCl (Flexeril) 10 mg Q8 PRN PO PAIN; Start 01/23/17 at 12:30 Tamsulosin HCl (Flomax) 0.4 mg DAILY PO Last administered on 01/28/17 08:26; Admin Dose 0.4 MG; Start 01/24/17 at 09:00 Levothyroxine Sodium (Synthroid) 50 mcg QAM@0630 PO Last administered on 05:54; Admin Dose 50 MCG; Start 01/24/17 at 06:30 Warfarin Sodium (Coumadin) 5 mg Q48H PO Last administered on 01/27/17 17:32; Admin Dose 5 MG; Start 01/27/17 at 17:00 Warfarin Sodium (Coumadin) 2.5 mg Q48H PO Last administered on 01/26/17 17:47 ; Admin Dose 2.5 MG; Start 01/26/17 at 17:00 Folic Acid (Folic Acid) 4 mg DAILY PO Last administered on 01/28/17 08:27; Admin Dose 4 MG; Start 01/27/17 at 09:00 Docusate Sodium (Colace) 100 mg BID PO Last administered on 01/28/17 08:26; Admin Dose 100 MG; Start 01/27/17 at 09:00 Magnesium Hydroxide (Milk Of Mag) 30 ml DAILY PO Last administered on 08:29; Admin Dose 30 ML; Start 01/27/17 at 09:00 Ciprofloxacin (Cipro) 500 mg BID@06,18 PO ; Start 01/28/17 at 18:00 JOSE SEYMOUR MD Jan 28, 2017 13:44
[2017-01-28] MEDS: WARFARIN 2.5 MG TAB PO SCH (17:46)
[2017-01-28] MEDS: CIPROFLOXACIN 500 MG TAB PO SCH (17:46)
[2017-01-28] MEDS: OXYCODONE/ACETAMINOPHEN (5/325) TAB PO PRN (17:49)
[2017-01-29] VITALS (7 sets, daily range): BP systolic 135–172; BP diastolic 64–79; RESP 18–20
[2017-01-29] MEDS: HYDROmorphONE 1 MG/ML SYG IV PRN ×3 (02:29→12:39)
[2017-01-29] MEDS: LEVOTHYROXINE 50 MCG TAB PO SCH (05:21)
[2017-01-29] MEDS: CIPROFLOXACIN 500 MG TAB PO SCH ×2 (05:21→17:24)
[2017-01-29 06:10] LABS: ABNORMAL IP MESSAGE 1; BASOPHIL # 0.1 10^3/ul (0.0-0.1); BASOPHILS % 0.5 % (0.0-2.0); EOSINOPHILS # 0.2 10^3/ul (0.0-0.5); EOSINOPHILS % 1.3 % (0.0-7.0); HEMATOCRIT 24.1 % (42.0-52.0); LYMPHOCYTES # 1.1 10^3/ul (0.8-2.9); LYMPHOCYTES % 7.3 % (15.0-51.0); MEAN CORPUSCULAR HEMOGLOBIN 29.2 pg (29.0-33.0); MEAN CORPUSCULAR HGB CONC 33.2 g/dl (32.0-37.0); MEAN PLATELET VOLUME 11.8 fl (7.4-10.4); MONOCYTE # 2.4 10^3/ul (0.3-0.9); MONOCYTES % 15.7 % (0.0-11.0); NEUTROPHILS % 71.7 % (39.0-77.0); NUCLEATED RED BLOOD CELLS # 1.5 10^3/ul (0.0-0.0); NUCLEATED RED BLOOD CELLS% 9.7 /100WBC (0.0-0.0); POSITIVE DIFF @See below; RED BLOOD COUNT 2.74 10^6/ul (4.70-6.10); RED CELL DISTRIBUTION WIDTH 22.6 % (11.5-14.5)
[2017-01-29 06:17] LABS: PLATELET COUNT 150 10^3/UL (140-415)
[2017-01-29 06:44] LABS: ALBUMIN 2.8 g/dl (3.3-4.9); BILIRUBIN,DIRECT 0.2 mg/dl (0.00-0.20); BILIRUBIN,INDIRECT 1.7 mg/dl (0-1.1); BILIRUBIN,TOTAL 1.9 mg/dl (0.2-1.3); TOTAL PROTEIN 6.3 g/dl (6.1-8.1)
[2017-01-29 06:46] LABS: INR 2.1; PROTIME 23.8 Sec (12.2-14.2); PT RATIO 1.9
[2017-01-29] MEDS: DOCUSATE SODIUM 100 MG CAP PO SCH ×2 (08:10→20:40)
[2017-01-29] MEDS: FOLIC ACID 1 MG TAB PO SCH (08:11)
[2017-01-29] MEDS: TAMSULOSIN (SR) 0.4 MG CAP PO SCH (08:11)
[2017-01-29] MEDS: FAMOTIDINE 20 MG TAB PO SCH ×2 (08:11→20:40)
[2017-01-29] MEDS: MAGNESIUM HYDROXIDE 30ML CUP PO SCH (08:12)
[2017-01-29] MEDS: AMIODARONE 200 MG TAB PO SCH (08:12)
--- NOTE | 2017-01-29 09:35 | PN ---
Date/Time of Note Date/Time of Note DATE: 01/29/17 TIME: 09:28 Assessment/Plan VTE Prophylaxis VTE Prophylaxis Intervention: other (coumadin) Lines/Catheters IV Catheter Type (from Nrs): Saline Lock Urinary Cath still in place: No Assessment/Plan Chief Complaint/Hosp Course worse of sickle crisis seems over however still not back to baseline Problems: Assessment/Plan plan increase activity today rest of the rx same patient afebrile today Subjective 24 Hr Interval Summary Free Text/Dictation still having pain in his left knee and right shoulder would like more activity today Exam/Review of Systems Vital Signs Vitals Vital Signs Date Time Temp Pulse Resp B/P Pulse Ox O2 Delivery O2 Flow Rate FiO2 01/29/17 07:30 98.8 90 18 149/71 100 01/25/17 20:00 Nasal Cannula Intake and Output 01/28/17 01/28/17 01/29/17 15:00 23:00 07:00 Intake Total 50 ml 1280 ml 240 ml Output Total 1450 ml 1350 ml Balance 50 ml -170 ml -1110 ml Exam vss heent negative o2 in place heent negative lungs clear heart regular rhythm abd,soft Results Result Diagram: 01/29/17 0517 01/27/17 0520 Results 24 hrs Laboratory Tests Test 01/29/17 05:17 White Blood Count 15.0 H Red Blood Count 2.74 L Hemoglobin 8.0 L Hematocrit 24.1 L Mean Corpuscular Volume 88.0 Mean Corpuscular Hemoglobin 29.2 Mean Corpuscular Hemoglobin Concent 33.2 Red Cell Distribution Width 22.6 H Platelet Count 150 # Mean Platelet Volume 11.8 H Neutrophils % 71.7 Lymphocytes % 7.3 L Monocytes % 15.7 H Eosinophils % 1.3 Basophils % 0.5 Nucleated Red Blood Cells % 9.7 H Neutrophils # (Manual) 10.8 H Lymphocytes # 1.1 Monocytes # 2.4 H Eosinophils # 0.2 Basophils # 0.1 Nucleated Red Blood Cells # 1.5 H Prothrombin Time 23.8 H Prothrombin Time Ratio 1.9 INR International Normalized Ratio 2.10 Total Bilirubin 1.9 H Direct Bilirubin 0.20 Indirect Bilirubin 1.7 H Aspartate Amino Transf (AST/SGOT) 46 Alanine Aminotransferase (ALT/SGPT) 45 Alkaline Phosphatase 309 H Total Protein 6.3 Albumin 2.8 L Medications Medications Current Medications Ondansetron HCl (Zofran Tab) 4 mg Q6H PRN PO NAUSEA AND/OR VOMITING; Start at 12:30 Oxycodone/ Acetaminophen (Percocet (5/ 325)) 1 tab Q6H PRN PO MODERATE PAIN LEVEL 4-6 Last administered on 01/27/17 16:07; Admin Dose 1 TAB; Start at 12:30 Oxycodone/ Acetaminophen (Percocet (5/ 325)) 2 tab Q6H PRN PO SEVERE PAIN LEVEL 7-10 Last administered on 01/28/17 17:49; Admin Dose 2 TAB; Start at 12:30 Hydromorphone HCl (Dilaudid) 0.5 mg Q4H PRN IV SEVERE PAIN LEVEL 7-10 Last administered on 01/29/17 08:14; Admin Dose 0.5 MG; Start 01/23/17 at 12:30 Docusate Sodium (Colace) 100 mg Q12H PRN PO CONSTIPATION; Start 01/23/17 at 12: 30 Magnesium Hydroxide (Milk Of Mag) 30 ml DAILY PRN PO CONSTIPATION Last administered on 01/26/17 17:46; Admin Dose 30 ML; Start 01/23/17 at 12:30 Famotidine (Pepcid) 20 mg Q12 PO Last administered on 01/29/17 08:11; Admin Dose 20 MG; Start 01/23/17 at 21:00 Amiodarone HCl (Cordarone) 200 mg DAILY PO Last administered on 01/29/17 08:12 ; Admin Dose 200 MG; Start 01/24/17 at 09:00 Cyclobenzaprine HCl (Flexeril) 10 mg Q8 PRN PO PAIN; Start 01/23/17 at 12:30 Tamsulosin HCl (Flomax) 0.4 mg DAILY PO Last administered on 01/29/17 08:11; Admin Dose 0.4 MG; Start 01/24/17 at 09:00 Levothyroxine Sodium (Synthroid) 50 mcg QAM@0630 PO Last administered on 05:21; Admin Dose 50 MCG; Start 01/24/17 at 06:30 Warfarin Sodium (Coumadin) 5 mg Q48H PO Last administered on 01/27/17 17:32; Admin Dose 5 MG; Start 01/27/17 at 17:00 Warfarin Sodium (Coumadin) 2.5 mg Q48H PO Last administered on 01/28/17 17:46 ; Admin Dose 2.5 MG; Start 01/26/17 at 17:00 Folic Acid (Folic Acid) 4 mg DAILY PO Last administered on 01/29/17 08:11; Admin Dose 4 MG; Start 01/27/17 at 09:00 Docusate Sodium (Colace) 100 mg BID PO Last administered on 01/29/17 08:10; Admin Dose 100 MG; Start 01/27/17 at 09:00 Magnesium Hydroxide (Milk Of Mag) 30 ml DAILY PO Last administered on 08:12; Admin Dose 30 ML; Start 01/27/17 at 09:00 Ciprofloxacin (Cipro) 500 mg BID@,18 PO Last administered on 01/29/17 05:21 ; Admin Dose 500 MG; Start 01/28/17 at 18:00 SAMUEL SAUNDERS MD Jan 29, 2017 09:35
--- NOTE | 2017-01-29 11:22 | PN ---
Date/Time of Note Date/Time of Note DATE: 01/29/17 TIME: 11:17 Assessment/Plan VTE Prophylaxis VTE Prophylaxis Intervention: other (warfarin) Lines/Catheters IV Catheter Type (from Nrs): Saline Lock Urinary Cath still in place: No Assessment/Plan Assessment/Plan Pt still has joint pain that is a long standing issue. P.T. requested by Dr. Murphy. If PT is not helpful, we could have him seen by orthopedics. Otherwise, no new suggestions. Hgb low but I would not transfuse today. Subjective 24 Hr Interval Summary Free Text/Dictation Pt still has pain. The left shoulder is the main area this morning Exam/Review of Systems Vital Signs Vitals Vital Signs Date Time Temp Pulse Resp B/P Pulse Ox O2 Delivery O2 Flow Rate FiO2 01/29/17 07:30 98.8 90 18 149/71 100 01/25/17 20:00 Nasal Cannula Intake and Output 01/28/17 01/28/17 01/29/17 15:00 23:00 07:00 Intake Total 50 ml 1280 ml 240 ml Output Total 1450 ml 1350 ml Balance 50 ml -170 ml -1110 ml Exam Constitutional: alert, oriented Head: normocephalic Eyes: other (pallor) Neck: supple Respiratory: clear to auscultation Cardiovascular: regular rate and rhythm Gastrointestinal: non-tender, soft Results Result Diagram: 01/29/17 0517 01/27/17 0520 Results 24 hrs Laboratory Tests Test 01/29/17 05:17 White Blood Count 15.0 H Red Blood Count 2.74 L Hemoglobin 8.0 L Hematocrit 24.1 L Mean Corpuscular Volume 88.0 Mean Corpuscular Hemoglobin 29.2 Mean Corpuscular Hemoglobin Concent 33.2 Red Cell Distribution Width 22.6 H Platelet Count 150 # Mean Platelet Volume 11.8 H Neutrophils % 71.7 Lymphocytes % 7.3 L Monocytes % 15.7 H Eosinophils % 1.3 Basophils % 0.5 Nucleated Red Blood Cells % 9.7 H Neutrophils # (Manual) 10.8 H Lymphocytes # 1.1 Monocytes # 2.4 H Eosinophils # 0.2 Basophils # 0.1 Nucleated Red Blood Cells # 1.5 H Prothrombin Time 23.8 H Prothrombin Time Ratio 1.9 INR International Normalized Ratio 2.10 Total Bilirubin 1.9 H Direct Bilirubin 0.20 Indirect Bilirubin 1.7 H Aspartate Amino Transf (AST/SGOT) 46 Alanine Aminotransferase (ALT/SGPT) 45 Alkaline Phosphatase 309 H Total Protein 6.3 Albumin 2.8 L Medications Medications Current Medications Ondansetron HCl (Zofran Tab) 4 mg Q6H PRN PO NAUSEA AND/OR VOMITING; Start at 12:30 Oxycodone/ Acetaminophen (Percocet (5/ 325)) 1 tab Q6H PRN PO MODERATE PAIN LEVEL 4-6 Last administered on 01/27/17 16:07; Admin Dose 1 TAB; Start at 12:30 Oxycodone/ Acetaminophen (Percocet (5/ 325)) 2 tab Q6H PRN PO SEVERE PAIN LEVEL 7-10 Last administered on 01/28/17 17:49; Admin Dose 2 TAB; Start at 12:30 Hydromorphone HCl (Dilaudid) 0.5 mg Q4H PRN IV SEVERE PAIN LEVEL 7-10 Last administered on 01/29/17 08:14; Admin Dose 0.5 MG; Start 01/23/17 at 12:30 Docusate Sodium (Colace) 100 mg Q12H PRN PO CONSTIPATION; Start 01/23/17 at 12: 30 Magnesium Hydroxide (Milk Of Mag) 30 ml DAILY PRN PO CONSTIPATION Last administered on 01/26/17 17:46; Admin Dose 30 ML; Start 01/23/17 at 12:30 Famotidine (Pepcid) 20 mg Q12 PO Last administered on 01/29/17 08:11; Admin Dose 20 MG; Start 01/23/17 at 21:00 Amiodarone HCl (Cordarone) 200 mg DAILY PO Last administered on 01/29/17 08:12 ; Admin Dose 200 MG; Start 01/24/17 at 09:00 Cyclobenzaprine HCl (Flexeril) 10 mg Q8 PRN PO PAIN; Start 01/23/17 at 12:30 Tamsulosin HCl (Flomax) 0.4 mg DAILY PO Last administered on 01/29/17 08:11; Admin Dose 0.4 MG; Start 01/24/17 at 09:00 Levothyroxine Sodium (Synthroid) 50 mcg QAM@0630 PO Last administered on 05:21; Admin Dose 50 MCG; Start 01/24/17 at 06:30 Warfarin Sodium (Coumadin) 5 mg Q48H PO Last administered on 01/27/17 17:32; Admin Dose 5 MG; Start 01/27/17 at 17:00 Warfarin Sodium (Coumadin) 2.5 mg Q48H PO Last administered on 01/28/17 17:46 ; Admin Dose 2.5 MG; Start 01/26/17 at 17:00 Folic Acid (Folic Acid) 4 mg DAILY PO Last administered on 01/29/17 08:11; Admin Dose 4 MG; Start 01/27/17 at 09:00 Docusate Sodium (Colace) 100 mg BID PO Last administered on 01/29/17 08:10; Admin Dose 100 MG; Start 01/27/17 at 09:00 Magnesium Hydroxide (Milk Of Mag) 30 ml DAILY PO Last administered on 08:12; Admin Dose 30 ML; Start 01/27/17 at 09:00 Ciprofloxacin (Cipro) 500 mg BID@ PO Last administered on 01/29/17 05:21 ; Admin Dose 500 MG; Start 01/28/17 at 18:00 JOSE SEYMOUR MD Jan 29, 2017 11:22
[2017-01-29] MEDS: OXYCODONE/ACETAMINOPHEN (5/325) TAB PO PRN (14:40)
[2017-01-29] MEDS: WARFARIN 5 MG TAB PO SCH (17:24)
[2017-01-30 02:00] VITALS: BP 134/68; PULSE 73; RESP 20
[2017-01-30] MEDS: CIPROFLOXACIN 500 MG TAB PO SCH ×3 (06:00→17:50)
[2017-01-30] MEDS: LEVOTHYROXINE 50 MCG TAB PO SCH ×2 (06:24→06:30)
[2017-01-30 06:25] VITALS: BP 134/68; RESP 19
[2017-01-30 07:32] VITALS: BP 165/73; RESP 18
--- NOTE | 2017-01-30 08:01 | CONS ---
Date/Time of Note Date/Time of Note DATE: 01/30/17 TIME: 07:56 Consult Date/Type/Reason Admit Date/Time Jan 25, 2017 at 14:53 Initial Consult Date Subjective Pt has ongoing mid-back, shoulder, and left knee pain. No worse than before. No fevers or chills. No sob or cough. Objective Vital Signs Date Time Temp Pulse Resp B/P Pulse Ox O2 Delivery O2 Flow Rate FiO2 01/30/17 07:32 99.4 94 18 165/73 94 Intake and Output 01/29/17 01/29/17 01/30/17 15:00 23:00 07:00 Intake Total 1760 ml Output Total 450 ml Balance 1310 ml Exam NAD/A&Ox4 OP clear Arthritic changes over most joints including bilateral knees, MCP, elbows. CTA B RRR no m/g/r Abd: soft, nt, no organomegaly No c/c/e dry skin Results/Medications Result Diagram: 01/29/17 0517 01/27/17 0520 Medications Current Medications Ondansetron HCl (Zofran Tab) 4 mg Q6H PRN PO NAUSEA AND/OR VOMITING; Start at 12:30 Oxycodone/ Acetaminophen (Percocet (5/ 325)) 1 tab Q6H PRN PO MODERATE PAIN LEVEL 4-6 Last administered on 01/29/17 14:40; Admin Dose 1 TAB; Start at 12:30 Oxycodone/ Acetaminophen (Percocet (5/ 325)) 2 tab Q6H PRN PO SEVERE PAIN LEVEL 7-10 Last administered on 01/28/17 17:49; Admin Dose 2 TAB; Start at 12:30 Hydromorphone HCl (Dilaudid) 0.5 mg Q4H PRN IV SEVERE PAIN LEVEL 7-10 Last administered on 01/29/17 12:39; Admin Dose 0.5 MG; Start 01/23/17 at 12:30 Docusate Sodium (Colace) 100 mg Q12H PRN PO CONSTIPATION; Start 01/23/17 at 12: 30 Magnesium Hydroxide (Milk Of Mag) 30 ml DAILY PRN PO CONSTIPATION Last administered on 01/26/17 17:46; Admin Dose 30 ML; Start 01/23/17 at 12:30 Famotidine (Pepcid) 20 mg Q12 PO Last administered on 01/29/17 20:40; Admin Dose 20 MG; Start 01/23/17 at 21:00 Amiodarone HCl (Cordarone) 200 mg DAILY PO Last administered on 01/29/17 08:12 ; Admin Dose 200 MG; Start 01/24/17 at 09:00 Cyclobenzaprine HCl (Flexeril) 10 mg Q8 PRN PO PAIN; Start 01/23/17 at 12:30 Tamsulosin HCl (Flomax) 0.4 mg DAILY PO Last administered on 01/29/17 08:11; Admin Dose 0.4 MG; Start 01/24/17 at 09:00 Levothyroxine Sodium (Synthroid) 50 mcg QAM@30 PO Last administered on 06:30; Admin Dose 50 MCG; Start 01/24/17 at 06:30 Warfarin Sodium (Coumadin) 5 mg Q48H PO Last administered on 01/29/17 17:24; Admin Dose 5 MG; Start 01/27/17 at 17:00 Warfarin Sodium (Coumadin) 2.5 mg Q48H PO Last administered on 01/28/17 17:46 ; Admin Dose 2.5 MG; Start 01/26/17 at 17:00 Folic Acid (Folic Acid) 4 mg DAILY PO Last administered on 01/29/17 08:11; Admin Dose 4 MG; Start 01/27/17 at 09:00 Docusate Sodium (Colace) 100 mg BID PO Last administered on 01/29/17 20:40; Admin Dose 100 MG; Start 01/27/17 at 09:00 Magnesium Hydroxide (Milk Of Mag) 30 ml DAILY PO Last administered on 08:12; Admin Dose 30 ML; Start 01/27/17 at 09:00 Ciprofloxacin (Cipro) 500 mg BID@18 PO Last administered on 01/30/17 06:30 ; Admin Dose 500 MG; Start 01/28/17 at 18:00 Assessment/Plan Problems: (1) Sickle cell anemia with pain (2) Pain (3) Rheumatoid arthritis (4) BPH (benign prostatic hypertrophy) with urinary retention (5) Osteoarthritis (6) Paroxysmal atrial fibrillation (7) E. coli UTI (urinary tract infection) (8) Sepsis due to Escherichia coli with no resultant organ failure Additional Assessment/Plan 1. SSA: Hb from yesterday was stable. Pt on folic acid daily. Not on Hydrea and not clear why. 2. Diffuse pain: due to SSA crisis/chronic RA-pain stabilizing but still present. 3. UTI: on Cipro 4. PAF: on amiodarone and warfarin Clinically stable and can be discharged from heme standpoint as long as pain relatively well-controlled. WALI MARTINEZ Jan 30, 2017 08:01
[2017-01-30] MEDS: FAMOTIDINE 20 MG TAB PO SCH ×2 (09:53→21:04)
[2017-01-30] MEDS: FOLIC ACID 1 MG TAB PO SCH (09:53)
[2017-01-30] MEDS: DOCUSATE SODIUM 100 MG CAP PO SCH ×2 (09:53→21:04)
[2017-01-30] MEDS: TAMSULOSIN (SR) 0.4 MG CAP PO SCH (09:54)
[2017-01-30] MEDS: AMIODARONE 200 MG TAB PO SCH (09:54)
[2017-01-30] MEDS: MAGNESIUM HYDROXIDE 30ML CUP PO SCH (09:54)
[2017-01-30] MEDS: CELECOXIB 200 MG CAP PO SCH (09:58)
--- NOTE | 2017-01-30 10:32 | PN ---
Date/Time of Note Date/Time of Note DATE: 01/30/17 TIME: 10:26 Assessment/Plan VTE Prophylaxis VTE Prophylaxis Intervention: other (warfarin) Lines/Catheters IV Catheter Type (from Nrs): Saline Lock Urinary Cath still in place: No Assessment/Plan Problems: (1) Sickle cell anemia with pain Status: Acute Comment: Still w/ some pain. Will add NSAID, celebrex, initially 400 mg, as requested. Then will reduce to 200 mg daily after d/c. (2) Paroxysmal atrial fibrillation Status: Chronic Comment: Therapeutic on warfarin and rate-controlled (3) E. coli UTI (urinary tract infection) Status: Acute Comment: S/p 6 days of treatment, first w/ cephalosporins and now with cipro. Improving. Ok to d/c antibiotic on d/c. (4) Sickle cell anemia Status: Chronic Comment: Hgb stable. Will monitor. Heme states ok for d/c from their standpoint. Subjective 24 Hr Interval Summary Constitutional: improved, no complaints Respiratory: no complaints Cardiovascular: no complaints Gastrointestinal: no complaints Genitourinary: no complaints Musculoskeletal: bone/joint pain (R shoulder pain and L knee pain continue, improved but feels they would improve more w/ NSAID treatment; associates this treatment w/ ice bag therapy in recent past) Neurologic: no complaints Exam/Review of Systems Vital Signs Vitals VS - Last 72 Hours, by Label Date Time Temp Pulse Resp B/P Pulse Ox O2 Delivery O2 Flow Rate FiO2 01/30/17 07:32 99.4 94 18 165/73 94 01/30/17 06:25 98.5 83 19 134/68 96 01/30/17 02:00 98.5 73 20 134/68 96 Room Air 01/29/17 19:43 99.5 95 20 135/64 98 01/29/17 15:42 99.8 157/70 01/29/17 14:41 100.5 158/78 01/29/17 14:00 100.2 107 18 172/75 96 01/29/17 07:30 98.8 90 18 149/71 100 01/29/17 06:07 155/79 01/29/17 02:00 98.6 86 20 164/73 100 01/28/17 22:00 99.2 141/62 01/28/17 19:44 99.8 96 20 158/72 96 01/28/17 17:45 99.5 01/28/17 14:23 99.6 94 20 144/64 97 01/28/17 11:00 101.1 01/28/17 08:31 101 164/74 01/28/17 07:42 100.3 93 18 167/74 93 01/28/17 03:31 99.2 95 18 141/65 01/28/17 02:05 98.7 94 20 164/74 94 01/27/17 22:11 98 155/70 01/27/17 19:48 98.8 109 20 155/66 94 01/27/17 16:01 101.2 107 18 154/74 95 Vital Signs Date Time Temp Pulse Resp B/P Pulse Ox O2 Delivery O2 Flow Rate FiO2 01/30/17 07:32 99.4 94 18 165/73 94 01/30/17 02:00 Room Air Intake and Output 01/29/17 01/29/17 01/30/17 15:00 23:00 07:00 Intake Total 1760 ml 440 ml Output Total 450 ml 1500 ml Balance 1310 ml -1060 ml Exam Constitutional: alert, frail, oriented Psych: nl mood/affect, no complaints Respiratory: clear to auscultation, normal air movement Cardiovascular: nl pulses, regular rate and rhythm, No edema, No murmurs/extra sounds, No rub Gastrointestinal: bowel sounds, nl liver, spleen, non-tender, soft, No mass, No rebound or guarding Musculoskeletal: No nl extremities to inspection (obvious arthritic changes to multiple joints) Extremities: normal pulses, No clubbing, No cyanosis, No edema 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, nl mental status, nl speech, nl strength Results Result Diagram: 01/29/1751601/27/17519 Medications Medications Current Medications Ondansetron HCl (Zofran Tab) 4 mg Q6H PRN PO NAUSEA AND/OR VOMITING; Start at 12:30 Oxycodone/ Acetaminophen (Percocet (5/ 325)) 1 tab Q6H PRN PO MODERATE PAIN LEVEL 4-6 Last administered on 01/29/17t 14:40; Admin Dose 1 TAB; Start at 12:30 Oxycodone/ Acetaminophen (Percocet (5/ 325)) 2 tab Q6H PRN PO SEVERE PAIN LEVEL 7-10 Last administered on 01/28/17 17:49; Admin Dose 2 TAB; Start at 12:30 Hydromorphone HCl (Dilaudid) 0.5 mg Q4H PRN IV SEVERE PAIN LEVEL 7-10 Last administered on 01/29/17 12:39; Admin Dose 0.5 MG; Start 01/23/17 at 12:30 Docusate Sodium (Colace) 100 mg Q12H PRN PO CONSTIPATION; Start 01/23/17 at 12: 30 Magnesium Hydroxide (Milk Of Mag) 30 ml DAILY PRN PO CONSTIPATION Last administered on 01/26/17 17:46; Admin Dose 30 ML; Start 01/23/17 at 12:30 Famotidine (Pepcid) 20 mg Q12 PO Last administered on 01/30/17 09:53; Admin Dose 20 MG; Start 01/23/17 at 21:00 Amiodarone HCl (Cordarone) 200 mg DAILY PO Last administered on 01/30/17 09:54 ; Admin Dose 200 MG; Start 01/24/17 at 09:00 Cyclobenzaprine HCl (Flexeril) 10 mg Q8 PRN PO PAIN; Start 01/23/17 at 12:30 Tamsulosin HCl (Flomax) 0.4 mg DAILY PO Last administered on 01/30/17 09:54; Admin Dose 0.4 MG; Start 01/24/17 at 09:00 Levothyroxine Sodium (Synthroid) 50 mcg QAM@0630 PO Last administered on 06:30; Admin Dose 50 MCG; Start 01/24/17 at 06:30 Warfarin Sodium (Coumadin) 5 mg Q48H PO Last administered on 01/29/17 17:24; Admin Dose 5 MG; Start 01/27/17 at 17:00 Warfarin Sodium (Coumadin) 2.5 mg Q48H PO Last administered on 01/28/17 17:46 ; Admin Dose 2.5 MG; Start 01/26/17 at 17:00 Folic Acid (Folic Acid) 4 mg DAILY PO Last administered on 01/30/17 09:53; Admin Dose 4 MG; Start 01/27/17 at 09:00 Docusate Sodium (Colace) 100 mg BID PO Last administered on 01/30/17 09:53; Admin Dose 100 MG; Start 01/27/17 at 09:00 Magnesium Hydroxide (Milk Of Mag) 30 ml DAILY PO Last administered on 09:54; Admin Dose 30 ML; Start 01/27/17 at 09:00 Ciprofloxacin (Cipro) 500 mg BID@,18 PO Last administered on 01/30/17 06:30 ; Admin Dose 500 MG; Start 01/28/17 at 18:00 Celecoxib (Celebrex) 400 mg DAILY PO Last administered on 01/30/17 09:58; Admin Dose 400 MG; Start 01/30/17 at 10:00 GAYLE BARROS MD Jan 30, 2017 10:32
[2017-01-30 14:45] VITALS: BP 152/70; RESP 22
[2017-01-30] MEDS: WARFARIN 2.5 MG TAB PO SCH (17:50)
[2017-01-30 19:51] VITALS: BP 142/69; RESP 20
[2017-01-31] MEDS: CIPROFLOXACIN 500 MG TAB PO SCH ×2 (05:27→17:08)
[2017-01-31] MEDS: LEVOTHYROXINE 50 MCG TAB PO SCH (05:56)
[2017-01-31 07:34] LABS: INR 1.69; PT RATIO 1.6
[2017-01-31 08:28] VITALS: BP 148/71; RESP 18
[2017-01-31] MEDS: CELECOXIB 200 MG CAP PO SCH (08:29)
[2017-01-31] MEDS: DOCUSATE SODIUM 100 MG CAP PO SCH ×2 (08:30→20:34)
[2017-01-31] MEDS: FAMOTIDINE 20 MG TAB PO SCH ×2 (08:31→20:33)
[2017-01-31] MEDS: TAMSULOSIN (SR) 0.4 MG CAP PO SCH (08:31)
[2017-01-31] MEDS: FOLIC ACID 1 MG TAB PO SCH (08:31)
[2017-01-31] MEDS: AMIODARONE 200 MG TAB PO SCH (08:32)
[2017-01-31] MEDS: MAGNESIUM HYDROXIDE 30ML CUP PO SCH (08:33)
--- NOTE | 2017-01-31 10:04 | PN ---
Date/Time of Note Date/Time of Note DATE: 01/31/17 TIME: 09:59 Assessment/Plan VTE Prophylaxis VTE Prophylaxis Intervention: other (warfarin) Lines/Catheters IV Catheter Type (from Nrs): Saline Lock Urinary Cath still in place: No Assessment/Plan Problems: (1) Sickle cell anemia with pain Status: Acute Comment: Pain markedly improved w/ addition of celebrex. Would continue on lower dose after d/c. (2) Rheumatoid arthritis Status: Chronic Comment: Pain controlled. Continue NSAID Qualifiers: Rheumatoid arthritis location: hand Rheumatoid factor presence: with rheumatoid factor Laterality: bilateral Qualified Code: M05.741 - Rheumatoid arthritis involving both hands with positive rheumatoid factor (3) Paroxysmal atrial fibrillation Status: Chronic Comment: Warfarin subtherapeutic today. Will not change dosage based on 1 value. Recheck tomorrow. (4) Sickle cell anemia Status: Chronic Comment: Stable. Recheck H/H before d/c Subjective 24 Hr Interval Summary Constitutional: improved, no complaints Respiratory: no complaints Cardiovascular: no complaints Gastrointestinal: no complaints Genitourinary: no complaints Musculoskeletal: No bone/joint pain (notes w/ celebrex pain is markedly improved. ) Neurologic: no complaints Exam/Review of Systems Vital Signs Vitals VS - Last 72 Hours, by Label Date Time Temp Pulse Resp B/P Pulse Ox O2 Delivery O2 Flow Rate FiO2 01/31/17 08:28 98.5 86 18 148/71 96 01/30/17 19:51 98.9 92 20 142/69 95 01/30/17 14:45 98.1 90 22 152/70 97 01/30/17 07:32 99.4 94 18 165/73 94 01/30/17 06:25 98.5 83 19 134/68 96 01/30/17 02:00 98.5 73 20 134/68 96 Room Air 01/29/17 19:43 99.5 95 20 135/64 98 01/29/17 15:42 99.8 157/70 01/29/17 14:41 100.5 158/78 01/29/17 14:00 100.2 107 18 172/75 96 01/29/17 07:30 98.8 90 18 149/71 100 01/29/17 06:07 155/79 01/29/17 02:00 98.6 86 20 164/73 100 01/28/17 22:00 99.2 141/62 01/28/17 19:44 99.8 96 20 158/72 96 01/28/17 17:45 99.5 01/28/17 14:23 99.6 94 20 144/64 97 01/28/17 11:00 101.1 Vital Signs Date Time Temp Pulse Resp B/P Pulse Ox O2 Delivery O2 Flow Rate FiO2 01/31/17 08:28 98.5 86 18 148/71 96 01/30/17 02:00 Room Air Intake and Output 01/30/17 01/30/17 01/31/17 14:59 22:59 06:59 Output Total 900 ml Balance -900 ml Exam Constitutional: alert, oriented, well developed Psych: nl mood/affect, no complaints Respiratory: clear to auscultation, normal air movement Cardiovascular: nl pulses, regular rate and rhythm, No edema, No murmurs/extra sounds, No rub Gastrointestinal: bowel sounds, nl liver, spleen, non-tender, soft, No mass, No rebound or guarding Musculoskeletal: No nl extremities to inspection (arthritic changes of multiple joints but not tender to palpation) Extremities: normal pulses, No clubbing, No cyanosis, No edema 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, nl mental status, nl speech, nl strength Results Result Diagram: 01/29/1717 01/27/17 0520 Results 24 hrs Laboratory Tests Test 01/31/17 05:07 Prothrombin Time 20.0 H Prothrombin Time Ratio 1.6 INR International Normalized Ratio 1.69 Medications Medications Current Medications Ondansetron HCl (Zofran Tab) 4 mg Q6H PRN PO NAUSEA AND/OR VOMITING; Start at 12:30 Oxycodone/ Acetaminophen (Percocet (5/ 325)) 1 tab Q6H PRN PO MODERATE PAIN LEVEL 4-6 Last administered on 01/29/17 14:40; Admin Dose 1 TAB; Start at 12:30 Oxycodone/ Acetaminophen (Percocet (5/ 325)) 2 tab Q6H PRN PO SEVERE PAIN LEVEL 7-10 Last administered on 01/28/17 17:49; Admin Dose 2 TAB; Start at 12:30 Hydromorphone HCl (Dilaudid) 0.5 mg Q4H PRN IV SEVERE PAIN LEVEL 7-10 Last administered on 01/29/17 12:39; Admin Dose 0.5 MG; Start 01/23/17 at 12:30 Docusate Sodium (Colace) 100 mg Q12H PRN PO CONSTIPATION; Start 01/23/17 at 12: 30 Magnesium Hydroxide (Milk Of Mag) 30 ml DAILY PRN PO CONSTIPATION Last administered on 01/26/17 17:46; Admin Dose 30 ML; Start 01/23/17 at 12:30 Famotidine (Pepcid) 20 mg Q12 PO Last administered on 01/31/17 08:31; Admin Dose 20 MG; Start 01/23/17 at 21:00 Amiodarone HCl (Cordarone) 200 mg DAILY PO Last administered on 01/31/17 08:32 ; Admin Dose 200 MG; Start 01/24/17 at 09:00 Cyclobenzaprine HCl (Flexeril) 10 mg Q8 PRN PO PAIN; Start 01/23/17 at 12:30 Tamsulosin HCl (Flomax) 0.4 mg DAILY PO Last administered on 01/31/17 08:31; Admin Dose 0.4 MG; Start 01/24/17 at 09:00 Levothyroxine Sodium (Synthroid) 50 mcg QAM@0630 PO Last administered on 05:56; Admin Dose 50 MCG; Start 01/24/17 at 06:30 Warfarin Sodium (Coumadin) 5 mg Q48H PO Last administered on 01/29/17 17:24; Admin Dose 5 MG; Start 01/27/17 at 17:00 Warfarin Sodium (Coumadin) 2.5 mg Q48H PO Last administered on 01/30/17 17:50 ; Admin Dose 2.5 MG; Start 01/26/17 at 17:00 Folic Acid (Folic Acid) 4 mg DAILY PO Last administered on 01/31/17 08:31; Admin Dose 4 MG; Start 01/27/17 at 09:00 Docusate Sodium (Colace) 100 mg BID PO Last administered on 01/30/17 21:04; Admin Dose 100 MG; Start 01/27/17 at 09:00 Magnesium Hydroxide (Milk Of Mag) 30 ml DAILY PO Last administered on 09:54; Admin Dose 30 ML; Start 01/27/17 at 09:00 Ciprofloxacin (Cipro) 500 mg BID@,18 PO Last administered on 01/31/17 05:27 ; Admin Dose 500 MG; Start 01/28/17 at 18:00 Celecoxib (Celebrex) 400 mg DAILY PO Last administered on 01/31/17 08:29; Admin Dose 400 MG; Start 01/30/17 at 10:00 GAYLE BARROS MD Jan 31, 2017 10:04
--- NOTE | 2017-01-31 11:32 | CONS ---
Date/Time of Note Date/Time of Note DATE: 01/31/17 TIME: 11:28 Consult Date/Type/Reason Admit Date/Time Jan 25, 2017 at 14:53 Subjective Pain is markedly better since the Celebrex was started. Pt able to get out of bed on his own power. Objective Vital Signs Date Time Temp Pulse Resp B/P Pulse Ox O2 Delivery O2 Flow Rate FiO2 01/31/17 08:28 98.5 86 18 148/71 96 01/30/17 02:00 Room Air Intake and Output 01/30/17 01/30/17 01/31/17 15:00 23:00 07:00 Output Total 900 ml Balance -900 ml Exam NAD/A&Ox4 OP clear RRR no m/g/r CTA B Soft, NT, ND, +BS Diffuse arthritic changes to wrist/mcp/pip Bilateral knee swelling, left > right Results/Medications Result Diagram: 01/29/17 0517 01/27/17 0520 Results 24 hrs Laboratory Tests Test 01/31/17 05:07 Prothrombin Time 20.0 H Prothrombin Time Ratio 1.6 INR International Normalized Ratio 1.69 Medications Current Medications Ondansetron HCl (Zofran Tab) 4 mg Q6H PRN PO NAUSEA AND/OR VOMITING; Start at 12:30 Oxycodone/ Acetaminophen (Percocet (5/ 325)) 1 tab Q6H PRN PO MODERATE PAIN LEVEL 4-6 Last administered on 01/29/17 14:40; Admin Dose 1 TAB; Start at 12:30 Oxycodone/ Acetaminophen (Percocet (5/ 325)) 2 tab Q6H PRN PO SEVERE PAIN LEVEL 7-10 Last administered on 01/28/17 17:49; Admin Dose 2 TAB; Start at 12:30 Hydromorphone HCl (Dilaudid) 0.5 mg Q4H PRN IV SEVERE PAIN LEVEL 7-10 Last administered on 01/29/17 12:39; Admin Dose 0.5 MG; Start 01/23/17 at 12:30 Docusate Sodium (Colace) 100 mg Q12H PRN PO CONSTIPATION; Start 01/23/17 at 12: 30 Magnesium Hydroxide (Milk Of Mag) 30 ml DAILY PRN PO CONSTIPATION Last administered on 01/26/17 17:46; Admin Dose 30 ML; Start 01/23/17 at 12:30 Famotidine (Pepcid) 20 mg Q12 PO Last administered on 01/31/17 08:31; Admin Dose 20 MG; Start 01/23/17 at 21:00 Amiodarone HCl (Cordarone) 200 mg DAILY PO Last administered on 01/31/17 08:32 ; Admin Dose 200 MG; Start 01/24/17 at 09:00 Cyclobenzaprine HCl (Flexeril) 10 mg Q8 PRN PO PAIN; Start 01/23/17 at 12:30 Tamsulosin HCl (Flomax) 0.4 mg DAILY PO Last administered on 01/31/17 08:31; Admin Dose 0.4 MG; Start 01/24/17 at 09:00 Levothyroxine Sodium (Synthroid) 50 mcg QAM@0630 PO Last administered on 05:56; Admin Dose 50 MCG; Start 01/24/17 at 06:30 Warfarin Sodium (Coumadin) 5 mg Q48H PO Last administered on 01/29/17 17:24; Admin Dose 5 MG; Start 01/27/17 at 17:00 Warfarin Sodium (Coumadin) 2.5 mg Q48H PO Last administered on 01/30/17 17:50 ; Admin Dose 2.5 MG; Start 01/26/17 at 17:00 Folic Acid (Folic Acid) 4 mg DAILY PO Last administered on 01/31/17 08:31; Admin Dose 4 MG; Start 01/27/17 at 09:00 Docusate Sodium (Colace) 100 mg BID PO Last administered on 01/30/17 21:04; Admin Dose 100 MG; Start 01/27/17 at 09:00 Magnesium Hydroxide (Milk Of Mag) 30 ml DAILY PO Last administered on 09:54; Admin Dose 30 ML; Start 01/27/17 at 09:00 Ciprofloxacin (Cipro) 500 mg BID@,18 PO Last administered on 01/31/17 05:27 ; Admin Dose 500 MG; Start 01/28/17 at 18:00 Celecoxib (Celebrex) 400 mg DAILY PO Last administered on 01/31/17 08:29; Admin Dose 400 MG; Start 01/30/17 at 10:00 Assessment/Plan Problems: (1) Sickle cell anemia with pain (2) Pain (3) Rheumatoid arthritis (4) BPH (benign prostatic hypertrophy) with urinary retention (5) Osteoarthritis (6) Paroxysmal atrial fibrillation (7) Sepsis due to Escherichia coli with no resultant organ failure (8) E. coli UTI (urinary tract infection) (9) Sickle cell anemia Additional Assessment/Plan 1. SSA pain crisis: cont fluids, folic acid, and addition of NSAIDs. I would be very careful with prolonged use of NSAIDs due to is potential to cause renal impairment especially in a patient with SSA who are prone to CKD. Consider tapering as knee pain improves. Pt to f/u with Dr. Bardales for possible left knee replacement shortly. Check CBC in am. Cont current medications Cont PT WALI MARTINEZ Jan 31, 2017 11:32
[2017-01-31 14:00] VITALS: BP 149/67; RESP 18
[2017-01-31] MEDS: WARFARIN 5 MG TAB PO SCH (17:08)
[2017-01-31 20:00] VITALS: BP 136/62; RESP 18
[2017-02-01 02:00] VITALS: BP 149/69; RESP 18
[2017-02-01] MEDS: CIPROFLOXACIN 500 MG TAB PO SCH ×2 (05:45→18:04)
[2017-02-01] MEDS: LEVOTHYROXINE 50 MCG TAB PO SCH (05:45)
[2017-02-01 06:26] LABS: ABNORMAL IP MESSAGE 1; BASOPHILS % 0.3 % (0.0-2.0); EOSINOPHILS # 0.4 10^3/ul (0.0-0.5); EOSINOPHILS % 2.9 % (0.0-7.0); HEMATOCRIT 21.9 % (42.0-52.0); LYMPHOCYTES # 1.3 10^3/ul (0.8-2.9); LYMPHOCYTES % 10.3 % (15.0-51.0); MEAN CORPUSCULAR HEMOGLOBIN 27.6 pg (29.0-33.0); MEAN CORPUSCULAR VOLUME 86.2 fl (82.0-101.0); MEAN PLATELET VOLUME 11.1 fl (7.4-10.4); MONOCYTE # 1.2 10^3/ul (0.3-0.9); MONOCYTES % 9.7 % (0.0-11.0); NEUTROPHILS % 73.9 % (39.0-77.0); NUCLEATED RED BLOOD CELLS # 0.8 10^3/ul (0.0-0.0); NUCLEATED RED BLOOD CELLS% 6.8 /100WBC (0.0-0.0); PLATELET COUNT 363 10^3/UL (140-415); POSITIVE DIFF @See below; RED BLOOD COUNT 2.54 10^6/ul (4.70-6.10); RED CELL DISTRIBUTION WIDTH 22.5 % (11.5-14.5); WHITE BLOOD COUNT 12.2 10^3/ul (4.8-10.8)
[2017-02-01 06:30] LABS: INR 1.75; PROTIME 20.6 Sec (12.2-14.2); PT RATIO 1.6
[2017-02-01 06:56] LABS: ALBUMIN 2.6 g/dl (3.3-4.9); ALBUMIN/GLOBULIN RATIO 0.72; BILIRUBIN,INDIRECT 1.3 mg/dl (0-1.1); BILIRUBIN,TOTAL 1.3 mg/dl (0.2-1.3); CALCIUM 8.2 mg/dl (8.4-10.2); CREATININE 0.88 mg/dl (0.61-1.24); POTASSIUM 4.8 mmol/L (3.5-5.1); TOTAL PROTEIN 6.2 g/dl (6.1-8.1)
[2017-02-01 07:20] VITALS: BP 143/68; RESP 20
[2017-02-01] MEDS: FOLIC ACID 1 MG TAB PO SCH (08:17)
[2017-02-01] MEDS: CELECOXIB 200 MG CAP PO SCH (08:17)
[2017-02-01] MEDS: TAMSULOSIN (SR) 0.4 MG CAP PO SCH (08:18)
[2017-02-01] MEDS: FAMOTIDINE 20 MG TAB PO SCH ×2 (08:18→20:35)
[2017-02-01] MEDS: AMIODARONE 200 MG TAB PO SCH (08:18)
[2017-02-01] MEDS: MAGNESIUM HYDROXIDE 30ML CUP PO SCH (08:19)
[2017-02-01] MEDS: DOCUSATE SODIUM 100 MG CAP PO SCH ×2 (08:19→20:36)
--- NOTE | 2017-02-01 10:33 | PN ---
Date/Time of Note Date/Time of Note DATE: 02/01/17 TIME: 10:19 Assessment/Plan VTE Prophylaxis VTE Prophylaxis Intervention: other (coumadin) Lines/Catheters IV Catheter Type (from Nrs): Saline Lock Urinary Cath still in place: No Assessment/Plan Chief Complaint/Hosp Course worse of sickle crisis seems over however still not back to baseline Problems: Assessment/Plan plan will transfuse one unit today and discharge if stable Subjective 24 Hr Interval Summary Free Text/Dictation feels well doing better pain much less Exam/Review of Systems Vital Signs Vitals Vital Signs Date Time Temp Pulse Resp B/P Pulse Ox O2 Delivery O2 Flow Rate FiO2 02/01/17 07:20 97.8 80 20 143/68 97 01/30/17 02:00 Room Air Intake and Output 01/31/17 01/31/17 02/01/17 15:00 23:00 07:00 Intake Total 1920 ml 600 ml Output Total 1100 ml 800 ml Balance 820 ml -200 ml Exam Constitutional: alert Psych: no complaints Head: normocephalic ENMT: nl external ears & nose Respiratory: clear to auscultation Cardiovascular: regular rate and rhythm Gastrointestinal: soft Results Result Diagram: 02/01/17 0547 02/01/17 0547 Results 24 hrs Laboratory Tests Test 02/01/17 05:47 White Blood Count 12.2 H Red Blood Count 2.54 L Hemoglobin 7.0 L Hematocrit 21.9 L Mean Corpuscular Volume 86.2 Mean Corpuscular Hemoglobin 27.6 L Mean Corpuscular Hemoglobin Concent 32.0 Red Cell Distribution Width 22.5 H Platelet Count 363 # Mean Platelet Volume 11.1 H Neutrophils % 73.9 Lymphocytes % 10.3 L Monocytes % 9.7 Eosinophils % 2.9 Basophils % 0.3 Nucleated Red Blood Cells % 6.8 H Neutrophils # (Manual) 9.0 H Lymphocytes # 1.3 Monocytes # 1.2 H Eosinophils # 0.4 Basophils # 0.0 Nucleated Red Blood Cells # 0.8 H Prothrombin Time 20.6 H Prothrombin Time Ratio 1.6 INR International Normalized Ratio 1.75 Sodium Level 135 Potassium Level 4.8 Chloride Level 102 Carbon Dioxide Level 25 Anion Gap 13 Blood Urea Nitrogen 25 H Creatinine 0.88 Glucose Level 81 Calcium Level 8.2 L Total Bilirubin 1.3 Direct Bilirubin 0.00 Indirect Bilirubin 1.3 H Aspartate Amino Transf (AST/SGOT) 54 H Alanine Aminotransferase (ALT/SGPT) 47 Alkaline Phosphatase 281 H Total Protein 6.2 Albumin 2.6 L Globulin 3.60 H Albumin/Globulin Ratio 0.72 Medications Medications Current Medications Ondansetron HCl (Zofran Tab) 4 mg Q6H PRN PO NAUSEA AND/OR VOMITING; Start at 12:30 Oxycodone/ Acetaminophen (Percocet (5/ 325)) 1 tab Q6H PRN PO MODERATE PAIN LEVEL 4-6 Last administered on 01/29/17 14:40; Admin Dose 1 TAB; Start at 12:30 Oxycodone/ Acetaminophen (Percocet (5/ 325)) 2 tab Q6H PRN PO SEVERE PAIN LEVEL 7-10 Last administered on 01/28/17 17:49; Admin Dose 2 TAB; Start at 12:30 Hydromorphone HCl (Dilaudid) 0.5 mg Q4H PRN IV SEVERE PAIN LEVEL 7-10 Last administered on 01/29/17 12:39; Admin Dose 0.5 MG; Start 01/23/17 at 12:30 Docusate Sodium (Colace) 100 mg Q12H PRN PO CONSTIPATION; Start 01/23/17 at 12: 30 Magnesium Hydroxide (Milk Of Mag) 30 ml DAILY PRN PO CONSTIPATION Last administered on 01/26/17 17:46; Admin Dose 30 ML; Start 01/23/17 at 12:30 Famotidine (Pepcid) 20 mg Q12 PO Last administered on 02/01/17 08:18; Admin Dose 20 MG; Start 01/23/17 at 21:00 Amiodarone HCl (Cordarone) 200 mg DAILY PO Last administered on 02/01/17 08:18 ; Admin Dose 200 MG; Start 01/24/17 at 09:00 Cyclobenzaprine HCl (Flexeril) 10 mg Q8 PRN PO PAIN; Start 01/23/17 at 12:30 Tamsulosin HCl (Flomax) 0.4 mg DAILY PO Last administered on 02/01/17 08:18; Admin Dose 0.4 MG; Start 01/24/17 at 09:00 Levothyroxine Sodium (Synthroid) 50 mcg QAM@0630 PO Last administered on 05:45; Admin Dose 50 MCG; Start 01/24/17 at 06:30 Warfarin Sodium (Coumadin) 5 mg Q48H PO Last administered on 01/31/17 17:08; Admin Dose 5 MG; Start 01/27/17 at 17:00 Warfarin Sodium (Coumadin) 2.5 mg Q48H PO Last administered on 01/30/17 17:50 ; Admin Dose 2.5 MG; Start 01/26/17 at 17:00 Folic Acid (Folic Acid) 4 mg DAILY PO Last administered on 02/01/17 08:17; Admin Dose 4 MG; Start 01/27/17 at 09:00 Docusate Sodium (Colace) 100 mg BID PO Last administered on 02/01/17 08:19; Admin Dose 100 MG; Start 01/27/17 at 09:00 Magnesium Hydroxide (Milk Of Mag) 30 ml DAILY PO Last administered on 09:54; Admin Dose 30 ML; Start 01/27/17 at 09:00 Ciprofloxacin (Cipro) 500 mg BID@,18 PO Last administered on 02/01/17 05:45 ; Admin Dose 500 MG; Start 01/28/17 at 18:00 Celecoxib (Celebrex) 400 mg DAILY PO Last administered on 02/01/17 08:17; Admin Dose 400 MG; Start 01/30/17 at 10:00 SAMUEL SAUNDERS MD Feb 01, 2017 10:31
[2017-02-01 13:07] VITALS: BP 134/62; RESP 20
--- NOTE | 2017-02-01 15:55 | PN ---
Date/Time of Note Date/Time of Note DATE: 02/01/17 TIME: 15:53 Assessment/Plan VTE Prophylaxis VTE Prophylaxis Intervention: other (warfarin) Lines/Catheters IV C[facility]ter Type (from [facility]): Saline Lock Urinary Cath still in place: No Assessment/Plan Assessment/Plan RBC transfusion for Hgb 7 and SS crisis. Agree that he shold be evaluated in the future for joint replacement. Subjective 24 Hr Interval Summary Free Text/Dictation Pt is stable. RBC ordered by Dr. Murphy. Exam/Review of Systems Vital Signs Vitals Vital Signs Date Time Temp Pulse Resp B/P Pulse Ox O2 Delivery O2 Flow Rate FiO2 02/01/17 13:07 98.8 96 20 134/62 99 01/30/17 02:00 Room Air Intake and Output 01/31/17 01/31/17 02/01/17 15:00 23:00 07:00 Intake Total 1920 ml 600 ml Output Total 1100 ml 800 ml Balance 820 ml -200 ml Exam Constitutional: alert Head: normocephalic Eyes: other (pallor) Respiratory: clear to auscultation Cardiovascular: regular rate and rhythm Gastrointestinal: non-tender, soft Results Result Diagram: 02/01/17 0547 02/01/17 0547 Results 24 hrs Laboratory Tests Test 02/01/17 05:47 White Blood Count 12.2 H Red Blood Count 2.54 L Hemoglobin 7.0 L Hematocrit 21.9 L Mean Corpuscular Volume 86.2 Mean Corpuscular Hemoglobin 27.6 L Mean Corpuscular Hemoglobin Concent 32.0 Red Cell Distribution Width 22.5 H Platelet Count 363 # Mean Platelet Volume 11.1 H Neutrophils % 73.9 Lymphocytes % 10.3 L Monocytes % 9.7 Eosinophils % 2.9 Basophils % 0.3 Nucleated Red Blood Cells % 6.8 H Neutrophils # (Manual) 9.0 H Lymphocytes # 1.3 Monocytes # 1.2 H Eosinophils # 0.4 Basophils # 0.0 Nucleated Red Blood Cells # 0.8 H Prothrombin Time 20.6 H Prothrombin Time Ratio 1.6 INR International Normalized Ratio 1.75 Sodium Level 135 Potassium Level 4.8 Chloride Level 102 Carbon Dioxide Level 25 Anion Gap 13 Blood Urea Nitrogen 25 H Creatinine 0.88 Glucose Level 81 Calcium Level 8.2 L Total Bilirubin 1.3 Direct Bilirubin 0.00 Indirect Bilirubin 1.3 H Aspartate Amino Transf (AST/SGOT) 54 H Alanine Aminotransferase (ALT/SGPT) 47 Alkaline Phosphatase 281 H Total Protein 6.2 Albumin 2.6 L Globulin 3.60 H Albumin/Globulin Ratio 0.72 Medications Medications Current Medications Ondansetron HCl (Zofran Tab) 4 mg Q6H PRN PO NAUSEA AND/OR VOMITING; Start at 12:30 Oxycodone/ Acetaminophen (Percocet (5/ 325)) 1 tab Q6H PRN PO MODERATE PAIN LEVEL 4-6 Last administered on 01/29/17 14:40; Admin Dose 1 TAB; Start at 12:30 Oxycodone/ Acetaminophen (Percocet (5/ 325)) 2 tab Q6H PRN PO SEVERE PAIN LEVEL 7-10 Last administered on 01/28/17 17:49; Admin Dose 2 TAB; Start at 12:30 Hydromorphone HCl (Dilaudid) 0.5 mg Q4H PRN IV SEVERE PAIN LEVEL 7-10 Last administered on 01/29/17 12:39; Admin Dose 0.5 MG; Start 01/23/17 at 12:30 Docusate Sodium (Colace) 100 mg Q12H PRN PO CONSTIPATION; Start 01/23/17 at 12: 30 Magnesium Hydroxide (Milk Of Mag) 30 ml DAILY PRN PO CONSTIPATION Last administered on 01/26/17 17:46; Admin Dose 30 ML; Start 01/23/17 at 12:30 Famotidine (Pepcid) 20 mg Q12 PO Last administered on 02/01/17 08:18; Admin Dose 20 MG; Start 01/23/17 at 21:00 Amiodarone HCl (Cordarone) 200 mg DAILY PO Last administered on 02/01/17 08:18 ; Admin Dose 200 MG; Start 01/24/17 at 09:00 Cyclobenzaprine HCl (Flexeril) 10 mg Q8 PRN PO PAIN; Start 01/23/17 at 12:30 Tamsulosin HCl (Flomax) 0.4 mg DAILY PO Last administered on 02/01/17 08:18; Admin Dose 0.4 MG; Start 01/24/17 at 09:00 Levothyroxine Sodium (Synthroid) 50 mcg QAM@0630 PO Last administered on 05:45; Admin Dose 50 MCG; Start 01/24/17 at 06:30 Warfarin Sodium (Coumadin) 5 mg Q48H PO Last administered on 01/31/17 17:08; Admin Dose 5 MG; Start 01/27/17 at 17:00 Warfarin Sodium (Coumadin) 2.5 mg Q48H PO Last administered on 01/30/17 17:50 ; Admin Dose 2.5 MG; Start 01/26/17 at 17:00 Folic Acid (Folic Acid) 4 mg DAILY PO Last administered on 02/01/17 08:17; Admin Dose 4 MG; Start 01/27/17 at 09:00 Docusate Sodium (Colace) 100 mg BID PO Last administered on 02/01/17 08:19; Admin Dose 100 MG; Start 01/27/17 at 09:00 Magnesium Hydroxide (Milk Of Mag) 30 ml DAILY PO Last administered on 09:54; Admin Dose 30 ML; Start 01/27/17 at 09:00 Ciprofloxacin (Cipro) 500 mg BID@,18 PO Last administered on 02/01/17 05:45 ; Admin Dose 500 MG; Start 01/28/17 at 18:00 Celecoxib (Celebrex) 400 mg DAILY PO Last administered on 02/01/17 08:17; Admin Dose 400 MG; Start 01/30/17 at 10:00 JOSE SEYMOUR MD Feb 01, 2017 15:55
[2017-02-01] MEDS ORDERED: WARFARIN 5 MG TAB PO SCH (17:29)
[2017-02-01 19:45] VITALS: BP 150/68; PULSE 80; RESP 19
[2017-02-01 20:45] VITALS: BP 147/66; PULSE 78; RESP 18
[2017-02-02 03:23] VITALS: BP 165/73; RESP 19
[2017-02-02] MEDS: CIPROFLOXACIN 500 MG TAB PO SCH (05:52)
[2017-02-02] MEDS: LEVOTHYROXINE 50 MCG TAB PO SCH (05:52)
[2017-02-02 05:54] LABS: BASOPHIL # 0.1 10^3/ul (0.0-0.1); BASOPHILS % 0.9 % (0.0-2.0); EOSINOPHILS # 0.3 10^3/ul (0.0-0.5); EOSINOPHILS % 2.7 % (0.0-7.0); HEMATOCRIT 27.7 % (42.0-52.0); HEMOGLOBIN 9.3 g/dl (14.0-18.0); LYMPHOCYTES # 1.1 10^3/ul (0.8-2.9); LYMPHOCYTES % 10.4 % (15.0-51.0); MEAN CORPUSCULAR HGB CONC 33.6 g/dl (32.0-37.0); MEAN CORPUSCULAR VOLUME 86.3 fl (82.0-101.0); MEAN PLATELET VOLUME 10.6 fl (7.4-10.4); MONOCYTE # 1.2 10^3/ul (0.3-0.9); MONOCYTES % 11.6 % (0.0-11.0); NUCLEATED RED BLOOD CELLS # 0.7 10^3/ul (0.0-0.0); NUCLEATED RED BLOOD CELLS% 6.5 /100WBC (0.0-0.0); PLATELET COUNT 462 10^3/UL (140-415); RED BLOOD COUNT 3.21 10^6/ul (4.70-6.10); RED CELL DISTRIBUTION WIDTH 19.5 % (11.5-14.5); WHITE BLOOD COUNT 10.5 10^3/ul (4.8-10.8)
[2017-02-02 06:03] LABS: INR 1.68; PROTIME 19.9 Sec (12.2-14.2); PT RATIO 1.6
[2017-02-02 07:15] VITALS: BP 159/77; RESP 20
--- NOTE | 2017-02-02 08:10 | PN ---
Date/Time of Note Date/Time of Note DATE: 02/02/17 TIME: 08:06 Assessment/Plan VTE Prophylaxis VTE Prophylaxis Intervention: other (coumadin) Lines/Catheters IV C[facility]ter Type (from [facility]): Saline Lock Urinary Cath still in place: No Assessment/Plan Chief Complaint/Hosp Course worse of sickle crisis seems over however still not back to baseline Problems: Assessment/Plan patient improved consider discharge today Subjective 24 Hr Interval Summary Constitutional: no complaints Eyes: no complaints ENT: no complaints Respiratory: no complaints Gastrointestinal: no complaints Genitourinary: no complaints Musculoskeletal: bone/joint pain Neurologic: no complaints Endocrine: no complaints Lymphatic: no complaints Psychological: no complaints Immunologic: no complaints Additional Comments patient stable anxious to go home Exam/Review of Systems Vital Signs Vitals Vital Signs Date Time Temp Pulse Resp B/P Pulse Ox O2 Delivery O2 Flow Rate FiO2 02/02/17 07:15 98.1 74 20 159/77 100 02/01/17 20:45 Room Air Intake and Output 02/01/17 02/01/17 02/02/17 14:59 22:59 06:59 Intake Total 1840 ml 500 ml Output Total 1400 ml 800 ml Balance 440 ml -300 ml Exam Constitutional: alert Psych: no complaints Head: normocephalic ENMT: nl external ears & nose Neck: supple Respiratory: clear to auscultation Cardiovascular: regular rate and rhythm Gastrointestinal: soft Musculoskeletal: joint tenderness, nl extremities to inspection Results Result Diagram: 02/02/17 0506 02/01/17 0547 Results 24 hrs Laboratory Tests Test 02/02/17 05:06 02/02/17 07:34 White Blood Count 10.5 Red Blood Count 3.21 #L Hemoglobin 9.3 #L Hematocrit 27.7 #L Mean Corpuscular Volume 86.3 Mean Corpuscular Hemoglobin 29.0 Mean Corpuscular Hemoglobin Concent 33.6 Red Cell Distribution Width 19.5 H Platelet Count 462 #H Mean Platelet Volume 10.6 H Neutrophils % 72.0 Lymphocytes % 10.4 L Monocytes % 11.6 H Eosinophils % 2.7 Basophils % 0.9 Nucleated Red Blood Cells % 6.5 H Neutrophils # (Manual) 7.5 Lymphocytes # 1.1 Monocytes # 1.2 H Eosinophils # 0.3 Basophils # 0.1 Nucleated Red Blood Cells # 0.7 H Prothrombin Time 19.9 H Prothrombin Time Ratio 1.6 INR International Normalized Ratio 1.68 Lab Scanned Report BLOOD TRANSFUSION Medications Medications Current Medications Ondansetron HCl (Zofran Tab) 4 mg Q6H PRN PO NAUSEA AND/OR VOMITING; Start at 12:30 Oxycodone/ Acetaminophen (Percocet (5/ 325)) 1 tab Q6H PRN PO MODERATE PAIN LEVEL 4-6 Last administered on 01/29/17 14:40; Admin Dose 1 TAB; Start at 12:30 Oxycodone/ Acetaminophen (Percocet (5/ 325)) 2 tab Q6H PRN PO SEVERE PAIN LEVEL 7-10 Last administered on 01/28/17 17:49; Admin Dose 2 TAB; Start at 12:30 Hydromorphone HCl (Dilaudid) 0.5 mg Q4H PRN IV SEVERE PAIN LEVEL 7-10 Last administered on 01/29/17 12:39; Admin Dose 0.5 MG; Start 01/23/17 at 12:30 Docusate Sodium (Colace) 100 mg Q12H PRN PO CONSTIPATION; Start 01/23/17 at 12: 30 Magnesium Hydroxide (Milk Of Mag) 30 ml DAILY PRN PO CONSTIPATION Last administered on 01/26/17 17:46; Admin Dose 30 ML; Start 01/23/17 at 12:30 Famotidine (Pepcid) 20 mg Q12 PO Last administered on 02/01/17 20:35; Admin Dose 20 MG; Start 01/23/17 at 21:00 Amiodarone HCl (Cordarone) 200 mg DAILY PO Last administered on 02/01/17 08:18 ; Admin Dose 200 MG; Start 01/24/17 at 09:00 Cyclobenzaprine HCl (Flexeril) 10 mg Q8 PRN PO PAIN; Start 01/23/17 at 12:30 Tamsulosin HCl (Flomax) 0.4 mg DAILY PO Last administered on 02/01/17 08:18; Admin Dose 0.4 MG; Start 01/24/17 at 09:00 Levothyroxine Sodium (Synthroid) 50 mcg QAM@0630 PO Last administered on 05:52; Admin Dose 50 MCG; Start 01/24/17 at 06:30 Folic Acid (Folic Acid) 4 mg DAILY PO Last administered on 02/01/17 08:17; Admin Dose 4 MG; Start 01/27/17 at 09:00 Docusate Sodium (Colace) 100 mg BID PO Last administered on 02/01/17 08:19; Admin Dose 100 MG; Start 01/27/17 at 09:00 Magnesium Hydroxide (Milk Of Mag) 30 ml DAILY PO Last administered on 09:54; Admin Dose 30 ML; Start 01/27/17 at 09:00 Ciprofloxacin (Cipro) 500 mg BID@,18 PO Last administered on 02/02/17 05:52 ; Admin Dose 500 MG; Start 01/28/17 at 18:00 Celecoxib (Celebrex) 400 mg DAILY PO Last administered on 02/01/17 08:17; Admin Dose 400 MG; Start 01/30/17 at 10:00 Warfarin Sodium (Coumadin) 5 mg DAILY@17 PO Last administered on 02/01/17 18: 05; Admin Dose 5 MG; Start 02/01/17 at 17:29 SAMUEL SAUNDERS MD Feb 02, 2017 08:10
[2017-02-02] MEDS: CELECOXIB 200 MG CAP PO SCH (09:04)
[2017-02-02] MEDS: DOCUSATE SODIUM 100 MG CAP PO SCH (09:05)
[2017-02-02] MEDS: FOLIC ACID 1 MG TAB PO SCH (09:05)
[2017-02-02] MEDS: FAMOTIDINE 20 MG TAB PO SCH (09:06)
[2017-02-02] MEDS: MAGNESIUM HYDROXIDE 30ML CUP PO SCH (09:06)
[2017-02-02] MEDS: TAMSULOSIN (SR) 0.4 MG CAP PO SCH (09:07)
[2017-02-02] MEDS: AMIODARONE 200 MG TAB PO SCH (09:10)
--- NOTE | 2017-02-02 12:35 | PDOCDIS ---
Discharge Instructions DIAGNOSIS Discharge Diagnosis sickle cell crisis resolved 2.hypothyroidism 3.U.T.I. resolved 4. djd left knee CONDITION Patient Condition: Fair HOME CARE INSTRUCTIONS: Diet Instructions: RegularSpecial Diet: Regular Diet ACTIVITY: Activity Restrictions: No Restrictions Bathing Restrictions: Shower FOLLOW UP/APPOINTMENTS Follow-up Plan one week OTHER ORDERS: Other Orders: continue current medication d/c antibiotic SCHOOL/WORK RELEASE May return to School/Work with: No Restrictions SAMUEL SAUNDERS MD Feb 02, 2017 12:35
[2017-02-02] MEDS ORDERED: CELE200C PO (12:39)
--- NOTE | 2017-02-02 14:43 | DS ---
Date/Time of Note Date/Time of Note DATE: 02/02/17 TIME: 14:38 Discharge Summary Admission/Discharge Info Admit Date/Time Jan 25, 2017 at 14:53 Discharge Date/Time Feb 02, 2017 at 14:00 Discharge Diagnosis sickle cell crisis resolved 2.hypothyroidism 3.U.T.I. resolved 4. djd left knee Patient Condition: Fair Consults hematology zeb mike Procedures none Hx of Present Illness Generally healthy 66-year-old single -Irish gentleman. 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 His last was roughly 3 years ago which was treated in the emergency room and then treated as an outpatient without admission. He has recently generally been healthy without any known fevers chills sweats has a negative urologic GI and respiratory review of systems. On 22 January he developed low back pain which then progressed to bilateral shoulder pain typical of his prior pain episodes. He presented to the emergency room with the hope of being treated as an outpatient. He was treated with analgesia but unfortunately his pain did not remit as much as at prior episodes. He denies any melena or bright red blood per rectum. Hospital Course worse of sickle crisis seems over however still not back to baseline continued to improve with fluids and antibiotics and transfusions total of 5 units Home Meds Active Scripts Celecoxib* (Celebrex*) 200 Mg Capsule, 200 MG PO DAILY for 60 Days, #60 CAP 3 Refills Prov:HUEY MURPHY MD 02/02/17 Cyclobenzaprine Hcl* (Cyclobenzaprine Hcl*) 10 Mg Tablet, 10 MG PO Q8 Y for PAIN , #21 TAB Prov:AGNES FARRIS MD 01/23/17 Oxycodone HCl/Acetaminophen (Percocet 5-325 mg Tablet) 1 Each Tablet, 1 EACH PO Q4 Y for PAIN, #20 TAB Prov:AGNES FARRIS MD 01/23/17 Reported Medications Tamsulosin Hcl* (Tamsulosin Hcl*) 0.4 Mg Cap.er.24h, 0.4 MG PO DAILY, CAP 10/10/14 Warfarin Sodium* (Coumadin*) 5 Mg Tablet, 5 MG PO DAILY, TAB 10/10/14 Amiodarone Hcl* (Amiodarone Hcl*) 200 Mg Tablet, 200 MG PO DAILY 12/01/12 Primary Care Provider Huey Murphy MD Time spent on discharge: < 30 minutes Pending Labs Laboratory Tests Test 02/02/17 05:06 02/02/17 07:34 White Blood Count 10.510^3/ul (4.8-10.8) Red Blood Count 3.2110^6/ul (4.70-6.10) Hemoglobin 9.3g/dl (14.0-18.0) Hematocrit 27.7% (42.0-52.0) Mean Corpuscular Volume 86.3fl (82.0-101.0) Mean Corpuscular Hemoglobin 29.0pg (29.0-33.0) Mean Corpuscular Hemoglobin Concent 33.6g/dl (32.0-37.0) Red Cell Distribution Width 19.5% (11.5-14.5) Platelet Count 26189^3/UL (140-415) Mean Platelet Volume 10.6fl (7.4-10.4) Neutrophils % 72.0% (39.0-77.0) Lymphocytes % 10.4% (15.0-51.0) Monocytes % 11.6% (0.0-11.0) Eosinophils % 2.7% (0.0-7.0) Basophils % 0.9% (0.0-2.0) Nucleated Red Blood Cells % 6.5/100WBC (0.0-0.0) Neutrophils # (Manual) 7.510^3/ul (1.7-7.5) Lymphocytes # 1.110^3/ul (0.8-2.9) Monocytes # 1.210^3/ul (0.3-0.9) Eosinophils # 0.310^3/ul (0.0-0.5) Basophils # 0.110^3/ul (0.0-0.1) Nucleated Red Blood Cells # 0.710^3/ul (0.0-0.0) Prothrombin Time 19.9Sec (12.2-14.2) Prothrombin Time Ratio 1.6 INR International Normalized Ratio 1.68 Lab Scanned Report BLOOD [id number] HUEY MURPHY MD Feb 02, 2017 14:43
[2017-02-03 13:49] LABS: PLATELET ANTIBODY - IGA POSITIVE (NEGATIVE); PLATELET ANTIBODY - IGG NEGATIVE (NEGATIVE); PLATELET ANTIBODY - IGM POSITIVE (NEGATIVE)
[2017-02-03 13:49] LABS: HEMOGLOBIN A 36.2 % (>96.0); HEMOGLOBIN A2 (QUANT) 4.2 % (1.8-3.5); HEMOGLOBIN F <1.0 % (<2.0); HEMOGLOBIN S 59.6 %
== END 2017-02-02 14:00 | disposition home or self-care (01) | DRG 871 ==
LOC: E/R 22:32 → MS2 01-23 12:27 → OBSVTOIN 01-25 14:53
PROVIDERS: ADMIT Internal Medicine; ATTEND Internal Medicine
PROC: 30233N1 Transfusion of Nonautologous Red Blood Cells into Peripheral Vein, Percutaneous Approach (ICD-10-PCS; principal; 2017-01-23)
DX: A41.51 Sepsis due to Escherichia coli [E. coli] (principal); D57.00 Hb-SS disease with crisis, unspecified; D69.6 Thrombocytopenia, unspecified; I48.0 Paroxysmal atrial fibrillation; N39.0 Urinary tract infection, site not specified; M06.9 Rheumatoid arthritis, unspecified; Z79.01 Long term (current) use of anticoagulants; B96.20 Unspecified Escherichia coli [E. coli] as the cause of diseases classified elsewhere; M17.12 Unilateral primary osteoarthritis, left knee; E03.9 Hypothyroidism, unspecified; N40.1 Benign prostatic hyperplasia with lower urinary tract symptoms; R33.8 Other retention of urine
CPT/HCPCS: 36415; 36430; 71010; 80048; 80053; 80076; 80202; 81001; 82270; 83010; 83020; 83605; 84100; 84443; 85025; 85045; 85378; 85384; 85610; 85651; 85730; 86022; 86850; 86900; 86901; 86920; 87040; 87086; 96374; 96375; 96376; 97110; 97116; 97162; 97530; G0378; J0696; J0698; J1170; J1200; J1644; J1885; J3370; J3480; J7030; J7040; J7050; P9016

== ENCOUNTER → 2017-09-13 | Outpatient (CLI) | END | disposition home or self-care (01) ==

== ENCOUNTER → 2017-10-04 | Outpatient (CLI) | END | disposition home or self-care (01) ==

== ENCOUNTER 2017-10-14 08:15 | Observation (INO) | END 2017-10-16 14:10 | disposition home health service (06) ==

== ENCOUNTER → 2017-10-25 | Outpatient (CLI) | END | disposition home or self-care (01) ==

== ENCOUNTER → 2017-11-22 | Outpatient (CLI) | END | disposition home or self-care (01) ==

== ENCOUNTER → 2018-02-14 | Outpatient (CLI) | END | disposition home or self-care (01) ==

== ENCOUNTER 2018-02-26 20:14 | Inpatient (IN) | END 2018-03-23 16:51 | disposition home or self-care (01) | DRG 853 ==

== ENCOUNTER 2018-04-09 16:33 | Inpatient (IN) | END 2018-05-10 18:42 | disposition short-term general hospital (02) | DRG 393 ==